=== PATIENT | female | born 1940 | race Caucasian/White ===

== ENCOUNTER 2017-10-18 10:24 | Observation (INO) | payer MEDICARE, OTHER ==
[~2017-10-18] VITALS: Ht 157.5 cm; Wt 49.9 kg
[~2017-10-18 10:24] MED LIST: ACIDOPHILUS1 EAC4 PO; ACIDOPHILUS1 EACH PO; ADVAIR 500-501 EACH INH; ALBUTEROL2.5 MG/3 M INH; ALDACTONE25 MG PO; ALENDRONATE SOD70 MG PO; AMBIEN5 MG PO; AMLODIPINE BESYL5 MG PO; ASPIRIN EC81 MG PO; ATORVASTATIN CA80 MG PO; ATROVENT HFA12.9 GM INH; BAYER MIGRAINE1 EACH PO; BROVANA15 MCG/2 M INH; CARVEDILOL25 MG PO; CEFUROXIME500 MG PO; CEPACOL SORE T1 EAC5 MM; CITRACAL-VIT D1 EAC2 PO; COLACE100 MG PO; COREG3.125 MG PO; DOXYCYCLINE HY100 MG PO; DRISTAN15 ML NAS; DUONEB; DURAGESIC1 EAC4 TD; FERROUS SULFAT325 MG PO; FISH OIL 1,0001 EAC2 NG; FISH OIL 1,0001 EAC2 PO; FISH OIL 1,0001 EAC3 PO; FOSAMAX70 MG PO; FUROSEMIDE20 MG PO; GUAIFENESIN-COD10 ML PO; HYDRALAZINE HCL10 MG PO; HYDROXYZINE HCL25 MG PO; IMDUR30 MG PO; IPRAT-ALBUT 0.5-3 ML INH; IPRATROPIU0.2 MG/1 M INH; IRON18 MG PO; ISOSORBIDE MONO30 MG PO; K-TAB10 MEQ PO; KEFLEX250 MG PO; KEFLEX500 MG PO; KLOR-CON20 MEQ PO; LASIX20 MG PO; LEVOFLOXACIN500 MG PO; LIDODERM700 MG TOP; LIPITOR80 MG GT; LIPITOR80 MG PO; LISINOPRIL10 MG PO; LISINOPRIL20 MG PO; LORATADINE10 MG PO; LORAZEPAM0.5 MG PO; LORAZEPAM1 MG PO; MELOXICAM15 MG PO; NEXAFED30 MG PO; NITROSTAT0.4 MG SL; NORCO 5-325 TA1 EACH PO; NORCO 7.5-3251 EACH PO; OMEPRAZOLE20 MG PO; ONDANSETRON ODT4 MG SL; PAROXETINE HCL40 MG PO; PAXIL40 MG PO; POTASSIUM CHLO10 MEQ PO; PREDNISONE20 MG PO; PROAIR HFA8.5 GM IH; PULMICORT0.5 MG/2 M INH; QUETIAPINE FUM100 MG PO; ROBAFEN-DM SYR118 ML PO; ROBITUSSIN COU118 ML PO; SENIOR PROBIOT1 EACH PO; SEROQUEL100 MG; SEROQUEL50 MG PO; SPIRONOLACTONE25 MG PO; SPIRONOLACTONE50 MG PO; SUPER B COMPLE1 EACH PO; SUPER B COMPLE150 MG PO; TESSALON PERLE100 MG PO; TRAZODONE HCL50 MG PO; VALIUM5 MG PO; VENTOLIN HFA18 GM INH; VITAMIN C500 M1 PO; VITAMIN C500 M4 PO; VITAMIN D31000 UNIT PO; ZITHROMAX250 MG PO; ZOFRAN ODT4 MG SL; ZOLPIDEM TARTRAT5 MG PO; ZONATUSS150 MG PO; ZYRTEC10 MG PO
--- NOTE | 2017-10-18 16:25 | NUR ---
PATIENT ARRIVED TO ROOM 108. PATIENT WAS ABLE TO MOVE SELF FROM GURNEY TO BED. PATIENT WAS WET. DRY ATTENDS PLACED. PATIENT DENIES ANY PAIN, IS LOOKING AT MENU WITH DAUGHTER PRISCILLA. DINNER ORDER PLACED.
--- NOTE | 2017-10-18 16:55 | NUR ---
PT RESTING IN BED 94% ON ROOM AIR. NO DISTRESS NOTED. PT REPORTS SHE HAS A LITTLE PAIN AT HER RIGHT RIBS. PT ADMINISTERED TYLENOL 650MG PRN AT THIS TIME. PT ALERT AND ORIENTED WATCHING TV, DINNER IS ORDERED
[2017-10-18] MEDS ORDERED: BUSPIRONE HCL5 MG PO (17:08)
[2017-10-18] MEDS ORDERED: SPIRONOLACTONE25 MG PO (17:10)
[2017-10-18] MEDS ORDERED: ADVAIR 500-501 EACH INH (17:12)
[2017-10-18] MEDS ORDERED: LORAZEPAM0.5 MG PO (17:13)
[2017-10-18] MEDS ORDERED: ALBUTEROL2.5 MG/3 M INH (17:13)
[2017-10-18] MEDS ORDERED: PROBIOTIC1 EAC1 PO (17:16)
[2017-10-18] MEDS ORDERED: CALTRATE 600 +1 EAC1 PO (17:16)
--- NOTE | 2017-10-18 17:32 | NUR ---
PT ADMITTED THIS AFTERNOON FROM E.D. PT HAS BEEN CALM AND COOPERATIVE SINCE ADMISSION. ONE PERSON HANDS ON ASSIST WITH FFW. BED ALARM ON. SHE REPORTED MILD PAIN AT RIGHT RIBS, TYLENOL ADMINISTERED. V/S STABLE. PT LOOKING FORWARD TO DINNER. NO NAUSEA.
--- NOTE | 2017-10-18 17:34 | NUR ---
MED REC COMPLETE
--- NOTE | 2017-10-18 18:08 | NUR ---
PATIENT RESTING IN BED WATCHING TV. NO NEEDS AT THIS TIME. CALL BUTTON IN REACH.
--- NOTE | 2017-10-18 22:00 | NUR ---
PT LAYING IN BED, NO APPARENT DISTRESS. ALERT AND ORIENTED, PLEASENT DEMEANOR. PT UP TO BSC TO VOID, TOLERATED TRANSER WITH 1 PERSON ASSIST WELL. PT BACK IN BED. GAVE JELLO PER REQUEST. FRESH WATER AT BEDSIDE. CALL LIGHT IN REACH. NO FURTHER NEEDS. TYLENOL GIVEN FOR GENERALIZED BODY ACHES.
--- NOTE | 2017-10-18 22:55 | NUR ---
PATIENT CALLED. 1 PERSON ASSIST TO THE BED SIDE COMMODE AND BACK TO BED. PATIENT ASKED FOR CRACKERS, 2 GRAHAMS GIVEN. CALL LIGHT WITHIN REACH.
--- NOTE | 2017-10-18 23:42 | NUR ---
PT APPEARS TO BE SLEEPING. RR WNL AND UNLABORED. O2 SAT 93% ON RA. LIGHTS AND TV OFF IN ROOM.
--- NOTE | 2017-10-19 05:00 | NUR ---
PT HAD UNEVENTFUL NIGHT. SLEPT WELL ENTIRE SHIFT. ALERT AND ORIENTED X4. SL. 1 PERSON ASSIST TO BSC, TOLERATED WELL. RA. USES CALL LIGHT APPROPRIATLY.
--- NOTE | 2017-10-19 08:08 | NUR ---
PT AWAKE IN BED, ALERT AND ORIENTED. STATES "I'M FEELING A LITTLE BIT BETTER TODAY." OCC HARSH COUGH NOTED DURING ASSESSMENT. PT SATTING 92% ON RA. LUNGS COURSE WITH EXP WHEEZES. PT DENIES PAIN OR OTHER CONCERNS AT THIS TIME. SITTING UP IN BED EATING BREAKFAST INDEPENDENTLY. CALL LIGHT WITHIN REACH.
--- NOTE | 2017-10-19 09:39 | NUR ---
PT AMB HALLWAY WITH P.T., SHAREE WELL WITH FWW AND SBA. HARSH, HACKING COUGH NOTED BUT PT DENIES SOB. SATTING 96% ON RA. PT USED RESTROOM TO VOID, CURRENTLY RESTING IN BED. CALL LIGHT WITHIN REACH.
--- NOTE | 2017-10-19 10:00 | NUR ---
RN IN ROOM WITH PATIENT FOR VITALS AND I&O'S.
--- NOTE | 2017-10-19 10:07 | NUR ---
IT IS AGREED UPON BY DR. ERVIN, MYSELF, AND BHAKTI PALACIOS, TO HAVE PATIENT'S GOAL FOR THE TUBE FEEDING BE JEVITY 1.5 FORMULA RUN CONTINUOUSLY AT A RATE OF 45 ML/HR. THIS WILL PROVIDE 1620 CALORIES (42.5 JOI/KG), 68 GM PROTEIN (1.78 GM/KG) and 820 ml WATER. RECOMMENDED WATER FLUSH TO MEET PATIENT'S FLUID NEEDS IS 100 ML QID WITH MEDS.
--- NOTE | 2017-10-19 10:09 | NUR ---
PT GIVEN PRN NEB TREATMENT PER REQUEST. SATTING 93% ON RA.
--- NOTE | 2017-10-19 10:15 | NUR ---
NOTIFIED DR. ERVIN OF PT COUGH AND ABNORMAL LABS. NO NEW ORDERS AT THIS TIME.
[2017-10-19] MEDS ORDERED: ZITHROMAX250 MG PO (10:39)
--- NOTE | 2017-10-19 12:05 | NUR ---
PT MINIMAL ASSIST TO GET DRESSED. PT AND DAUGHTER GIVEN VERBAL AND WRITTEN DC INSTRUCTIONS. IV DC'D, SITE WITHOUT REDNESS OR INFLAMMATION. PT SITTING AT BEDSIDE EATING LUNCH BEFORE LEAVING. ALL QUESTIONS ANSWERED.
--- NOTE | 2017-10-19 12:45 | NUR ---
PT LAYING IN BED, COUGHING BUT ALERT. SHE TOLD ME THAT SHE DID NOT FEEL WELL, AND THAT SHE WAS GOING TO BE DC'D TODAY. WE VISITED A MOMENT, AND I ENCOURAGED HER TO LET THE MEDS WORK FOR HER. SHE WOULD NOT BE DC'D IF THERE WAS A SOLID REASON FOR KEEPING HER. SHE WAS COMPLAINING OF HOW THE COUGHING MADE HER ABDOMEN HURT. I SPOKE WITH DR ERVIN, AND SHARED WITH PT THAT SHE FELT THE MEDS WOULD WORK-JUST BE SURE TO TAKE THEM AND GIVE YOUR BODY TIME TO HEAL. SHE SEEMED TO ACCEPT THIS A LITTLE BETTER. EXTENDED A BLESSING
--- NOTE | 2017-10-21 22:39 | EKG ---
[facility] [address] [facility] [place] [address] Signed Normal sinus rhythm Left ventricular hypertrophy with QRS widening and repolarization abnormality Abnormal ECG No previous ECGs available Confirmed by PREETI SPENCER MD ([id number]) on 10/21/2017 10:38:49 PM Electronically Signed By: PREETI SPENCER MD 10/21/17 2239 PATIENT NAME: ISI PRADO Electrocardiogram DATE OF : 36 PHYSICIAN: PREETI SPENCER MD REPORT #: [id number] REPORT IS CONFIDENTIAL AND NOT TO BE RELEASED WITHOUT AUTHORIZATION
== END 2017-10-19 12:20 | disposition home or self-care (01) ==
LOC: ED 10:24 → MS 10:25
PROVIDERS: ADMIT Internal Medicine
DX: R05 Cough (principal); J44.9 Chronic obstructive pulmonary disease, unspecified; F41.8 Other specified anxiety disorders; E78.00 Pure hypercholesterolemia, unspecified; I13.0 Hypertensive heart and 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 disease with heart failure and stage 1 through stage 4 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 disease, or unspecified 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 disease; N18.9 Chronic kidney disease, unspecified; I50.9 Heart failure, unspecified; M54.30 Sciatica, unspecified side; I25.10 Atherosclerotic heart disease of native coronary artery without angina pectoris; M81.0 Age-related osteoporosis without current pathological fracture; Z86.73 Personal history of transient ischemic attack (TIA), and cerebral infarction without residual deficits; Z79.82 Long term (current) use of aspirin; Z79.83 Long term (current) use of bisphosphonates; Z79.52 Long term (current) use of systemic steroids; Z79.899 Other long term (current) drug therapy
CPT/HCPCS: 36415; 71045; 80048; 80053; 83605; 83735; 83880; 84484; 85025; 85651; 93005; 93010; 94640; 94762; 96361; 96365; 96375; 97161; 99285; G0378; G8978; G8979; G8980; J0456; J1200; J2060; J2930; J7120

== ENCOUNTER 2018-01-31 16:01 | Emergency (ER) | payer MEDICARE, OTHER ==
[~2018-01-31] VITALS: Ht 157.5 cm; Wt 48.5 kg
[~2018-01-31 16:01] MED LIST changes: +BUSPIRONE HCL5 MG PO; +CALTRATE 600 +1 EAC1 PO; +PROBIOTIC1 EAC1 PO
--- OUTSIDE RECORDS SUMMARY | 2018-01-31 16:25 | XMS | Clinical Summary ---
Demographics + + + | Address | [address] | | | [place] [address] | + + + | Home Phone | | + + + | Preferred Language | Unknown | + + + | Marital Status | Single | + + + | Religion Affiliation | 1041 | + + + | Race | Unknown | + + + | Ethnic Group | Unknown | + + + Author + + + | Author | [employer] | + + + | Organization | [facility] | + + + | Address | Unknown | + + + | Phone | Unavailable | + + + Support + + +---------+ + | Name | Relationship | Address | Phone | + + +---------+ + | Zunilda Tellez | ECON | Unknown | | + + +---------+ + | Sondra Tellez | ECON | Unknown | | + + +---------+ + Care Team Providers + +------+ + | Care Mine Motor Engineer Name | Role | Phone | + +------+ + | Silvana Shoemaker PIANO TECHNICIAN | PP | | + +------+ + Allergies No Known Allergies Current Medications + + +-------+---------+------+------+-------+ | Prescription | Sig. | Disp. | Refills | Star | End | Statu | | | | | | t | Date | s | | | | | | Date | | | + + +-------+---------+------+------+-------+ | quetiapine | Take 50 mg by mouth | | | | | Activ | | (SEROQUEL) 50 MG | nightly. | | | | | e | | tablet | | | | | | | + + +-------+---------+------+------+-------+ | PARoxetine (PAXIL) | Take 40 mg by mouth | | | | | Activ | | 40 MG tablet | every morning. | | | | | e | + + +-------+---------+------+------+-------+ | alendronate | Take 70 mg by mouth | | | | | Activ | | (FOSAMAX) 70 MG | every 7 days. Take | | | | | e | | tablet | in the morning with | | | | | | | | a full glass of | | | | | | | | water, on an empty | | | | | | | | stomach, and do not | | | | | | | | take anything else | | | | | | | | by mouth or lie down | | | | | | | | for the next 30 | | | | | | | | min. | | | | | | + + +-------+---------+------+------+-------+ | aspirin 81 MG EC | Take 81 mg by mouth | | | | | Activ | | tablet | daily with | | | | | e | | | breakfast. | | | | | | + + +-------+---------+------+------+-------+ | Cholecalciferol | Take 1,000 Units by | | | | | Activ | | (VITAMIN D3) [address] | mouth daily. | | | | | e | | UNITS capsule | | | | | | | + + +-------+---------+------+------+-------+ | carvedilol (COREG) | Take 25 mg by mouth | | | | | Activ | | 25 MG tablet | 2 (two) times daily | | | | | e | | | with meals. | | | | | | + + +-------+---------+------+------+-------+ | isosorbide | Take 30 mg by mouth | | | | | Activ | | mononitrate (IMDUR) | daily. | | | | | e | | 30 MG 24 hr tablet | | | | | | | + + +-------+---------+------+------+-------+ | | Inhale 1 puff into | | | | | Activ | | fluticasone-salmeter | the lungs 2 (two) | | | | | e | | ol (ADVAIR) 500-50 | times daily. | | | | | | | MCG/DOSE diskus | | | | | | | | inhaler | | | | | | | + + +-------+---------+------+------+-------+ | amLODIPine | Take 5 mg by mouth | | | | | Activ | | (NORVASC) 5 MG | daily. | | | | | e | | tablet | | | | | | | + + +-------+---------+------+------+-------+ | | Take 1 tablet by | | | | | Activ | | HYDROcodone-acetamin | mouth every 6 (six) | | | | | e | | ophen (NORCO) 5-325 | hours as needed for | | | | | | | MG per tablet | Pain. | | | | | | + + +-------+---------+------+------+-------+ | atorvastatin | Take 80 mg by mouth | | | 04/17 | | Activ | | (LIPITOR) 80 MG | daily. | | | 07/06 | | e | | tablet | | | | 15 | | | + + +-------+---------+------+------+-------+ | spironolactone | Take 25 mg by mouth | | | 07/ | | Activ | | (ALDACTONE) 25 MG | daily. | | | 03/05 | | e | | tablet | | | | 15 | | | + + +-------+---------+------+------+-------+ | arformoterol | Take 15 mcg by | | | | | Activ | | (BROVANA) 15 MCG/2ML | nebulization 2 (two) | | | | | e | | NEBU | times daily. | | | | | | + + +-------+---------+------+------+-------+ | budesonide | Take 0.5 mg by | | | | | Activ | | (PULMICORT) 0.5 | nebulization 2 (two) | | | | | e | | MG/2ML nebulizer | times daily. | | | | | | | suspension | | | | | | | + + +-------+---------+------+------+-------+ | Lactobacillus | Take by mouth. | | | | | Activ | | (ACIDOPHILUS PO) | | | | | | e | + + +-------+---------+------+------+-------+ | loratadine | Take 10 mg by mouth | | | | | Activ | | (CLARITIN) 10 MG | daily. | | | | | e | | tablet | | | | | | | + + +-------+---------+------+------+-------+ | oxymetazoline | 1 spray by Each Nare | | | | | Activ | | (AFRIN) 0.05 % nasal | route 2 (two) times | | | | | e | | | daily. | | | | | | + + +-------+---------+------+------+-------+ | ascorbic acid | Take 500 mg by mouth | | | | | Activ | | (VITAMIN C) 500 MG | daily. | | | | | e | | tablet | | | | | | | + + +-------+---------+------+------+-------+ | traZODone | Take 50 mg by mouth | | | | 04/1 | Disco | | (DESYREL) 50 MG | nightly. | | | | 1/20 | ntinu | | tablet | | | | | 18 | ed | + + +-------+---------+------+------+-------+ | diazepam (VALIUM) | Take 5 mg by mouth | | | | 04/1 | Disco | | 5 MG tablet | every 6 (six) hours | | | | 1/20 | ntinu | | | as needed for | | | | 18 | ed | | | Anxiety. | | | | | | + + +-------+---------+------+------+-------+ Active Problems + + + | Problem | Noted Date | + + + | LBBB (left bundle branch block) | 01/25/2018 | + + + | Closed nondisplaced lateral mass fracture of first cervical | 07/22/2015 | | vertebra (HCC) | | + + + | Right renal mass | 11/18/2014 | + + + | CKD (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 disease), stage III | 08/19/2014 | + + + | Proteinuria | 08/19/2014 | + + + | Stroke | 08/19/2014 | + + + + + | Overview: In 1993. | + + + + + | COPD (chronic obstructive pulmonary disease) | 08/19/2014 | + + + | Osteoarthritis | 08/19/2014 | + + + | Vitamin D deficiency | 08/19/2014 | + + + | HTN (hypertension) | 07/29/2014 | + + + | Anemia | 07/29/2014 | + + + Resolved Problems + + + + | Problem | Noted | Resolved | | | Date | Date | + + + + | Heart murmur | 08/19/20 | | | | 14 | 8 | + + + + Encounters +--------+ + + + + | Date | Type | Specialty | Care Team | Description | +--------+ + + + + | 01/26/ | Documentati | | Laila Kate | Labs Only | | 2018 | on Only | | Bertin, JAMIE | | +--------+ + + + + | 01/25/ | Initial | | Lawanda Latham, | Essential | | 2018 | consult | | MD | hypertension | | | | | | (Primary Dx); CKD | | | | | | (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 | | | | | | disease), stage III; | | | | | | LBBB (left bundle | | | | | | branch block); | | | | | | Chronic obstructive | | | | | | pulmonary disease, | | | | | | unspecified COPD | | | | | | type (HCC) | +--------+ + + + + | 01/23/ | Documentati | | Anyi | Labs Only | | 2017 | on Only | | BHAKTI Mancia | | +--------+ + + + + | 12/15/ | Documentati | | Jillian Houston CMA | Labs Only ([facility] | | 2017 | on Only | | | Lab dated | | | | | | 12/14/2017) | +--------+ + + + + | 12/15/ | Orders Only | | Jillian Houston CMA | CKD (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 | | 2017 | | | | disease), stage III; | | | | | | Essential | | | | | | hypertension; | | | | | | Proteinuria, | | | | | | unspecified type | +--------+ + + + + | 12/09/ | Office | | Will Rowan, | CKD (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 | | 2018 | 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 | | 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 PROFESSOR | disease), stage III | | | | | | (Primary Dx); | | | | | | Essential | | | | | | hypertension; | | | | | | Proteinuria, | | | | | | unspecified type | +--------+ + + + + | 12/08/ | Orders Only | | Brian, | Anemia, unspecified | | 2017 | | | JAMIE Guzman | type; CKD (chronic | | | | | | kidney disease), | | | | | | stage III; Essential | | | | | | hypertension; | | | | | | Proteinuria; Right | | | | | | renal mass; Vitamin | | | | | | D deficiency | +--------+ + + + + | 12/07/ | Documentati | | Brian, | Labs Only ([facility] | | 2017 | on Only | | JAMIE Guzman | - 12/06/17 - | | | | | | rita) | +--------+ + + + + | 12/07/ | Orders Only | | Essieliger, | Anemia, unspecified | | 2017 | | | 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; CKD (chronic | | | | | | kidney disease), | | | | | | stage III; Essential | | | | | | hypertension; | | | | | | Proteinuria; Right | | | | | | renal mass; Vitamin | | | | | | D deficiency | +--------+ + + + + | 11/09/ | Documentati | | Lawanda Latham, | | | 2017 | on Only | | MD | | +--------+ + + + + from Last 3 Months Family History + + +------+ + | Medical History | Relation | Name | Comments | + + +------+ + | Alzheimer's disease | Brother | | | + + +------+ + | Heart attack | Brother | | | + + +------+ + | Parkinson's disease | Brother | | | + + +------+ + | Seizures | Daughter | | | + + +------+ + | Stroke | Daughter | | | + + +------+ + | Cancer | Father | | Pancreatic Cancer | + + +------+ + | Heart attack | Father | | | + + +------+ + | Pancreatic cancer | Father | | | + + +------+ + | Cancer | Mother | | Colon Cancer | + + +------+ + | Colon cancer | Mother | | | + + +------+ + | Hypertension | Mother | | | + + +------+ + | Heart disease | Other | | | + + +------+ + | Depression | Sister | | | + + +------+ + | Diabetes | Sister | | | + + +------+ + | Heart attack | Sister | | | + + +------+ + | Stroke | Sister | | | + + +------+ + | Kidney disease | Sister | | | + + +------+ + | Alcoholism | Son | | | + + +------+ + | Alcoholism | Son | | | + + +------+ + + +------+ + + | Relation | Name | Status | Comments | + +------+ + + | Brother | | | | + +------+ + + | Daughter | | | | + +------+ + + | Father | | | | + +------+ + + | Mother | | | | + +------+ + + | Other | | | | + +------+ + + | Sister | | | | + +------+ + + | Sister | | | | + +------+ + + | Son | | | | + +------+ + + | Son | | | | + +------+ + + Social History + +-------+ +--------+------+ | Tobacco Use | Types | Packs/Day | Years | Date | | | | | Used | | + +-------+ +--------+------+ | Never Smoker | | | | | + +-------+ +--------+------+ + +---+---+---+ | Smokeless Tobacco: | | | | | Never Used | | | | + +---+---+---+ + + +---------+ + | Alcohol Use | Drinks/We | oz/Week | Comments | | | ek | | | + + +---------+ + | No | | | | + + +---------+ + + + + | Sex Assigned at | Date Recorded | | | | + + + | Not on file | | + + + Last Filed Vital Signs + + + + | Vital Sign | Reading | Time Taken | + + + + | Blood Pressure | 124/62 | 01/25/2018 2:32 PM PDT | + + + + | Pulse | 66 | 01/25/2018 2:32 PM PDT | + + + + | Temperature | 36.4 C (97.6 F) | 12/09/2017 1:08 PM PST | + + + + | Respiratory Rate | - | - | + + + + | Oxygen Saturation | 95% | 01/25/2018 2:32 PM PDT | + + + + | Inhaled Oxygen | - | - | | Concentration | | | + + + + | Weight | 48.6 kg (107 lb 1.6 | 01/25/2018 2:32 PM PDT | | | oz) | | + + + + | Height | 157.5 cm (5' 2") | 01/25/2018 2:32 PM PDT | + + + + | Body Mass Index | 19.59 | 01/25/2018 2:32 PM PDT | + + + + Plan of Treatment + + + + + | Health Maintenance | Due Date | Last Done | Comments | + + + + + | Vaccine: | | | | | Dtap/Tdap/Td (1 - | 7 | | | | Tdap) | | | | + + + + + | Vaccine: Zoster (#1) | | | | | | 8 | | | + + + + + | DEXA SCAN SCREENING | | | | | | 3 | | | + + + + + | Vaccine: | | | | | Pneumococcal 65+ | 3 | | | | Low/Medium Risk (1 | | | | | of 2 - PCV13) | | | | + + + + + | Vaccine: Influenza | | | | | (Season Ended) | 8 | | | + + + + + Results Basic metabolic panel (12/14/2017 1:00 PM) + + + + | Component | Value | Ref Range | + + + + | GLUCOSE | 124 (A) | 70 - 100 mg/dL | + + + + | BUN | 21 | 6 - 23 mg/dL | + + + + | CREATININE | 1.38 (A) | 0.7 - 1.18 mg/dL | + + + + | BUN/CREAT | 15.2 | 6.0 - 28.6 | + + + + | CALCIUM | 9.1 | 8.4 - 10.2 mg/dL | + + + + | SODIUM | 140 | 132 - 143 mmol/L | + + + + | POTASSIUM | 4.7 | 3.6 - 5.1 mmol/L | + + + + | CHLORIDE | 106 | 95 - 112 mmol/L | + + + + | CO2 | 21 | 19 - 31 mmol/L | + + + + | ANION GAP AGAP | 17.7 | 7 - 21 mmol/L | + + + + | EGFR | 37 (A) | 60 mg/dL | + + + + + + + | Specimen | Performing Laboratory | + + + | Blood | [facility] [address] [place] [address] [place] | | | [address] | + + + Urinalysis (reflex to microscopic/reflex to culture) (12/07/2017) + + + + | Component | Value | Ref Range | + + + + | COLOR UA | Light Yellow | | + + + + | CLARITY | Clear | | + + + + | SPECIFIC | 1.008 | 1.005 - 1.030 | | GRAVITY,URINE | | | + + + + | LEUKOCYTE ESTERASE | Comment: 100 | | + + + + | NITRITE | Negative | | + + + + | UROBILINOGEN | Normal | | + + + + | PROTEIN | neg | | + + + + | BLOOD | Negative | | + + + + | KETONES | neg | | + + + + | BILIRUBIN | Negative | | + + + + | GLUCOSE | Negative | | + + + + + + + | Specimen | Performing Laboratory | + + + | | [place] | | | [phone] | + + + + + | Narrative | + + | CASTS - NEGATIVE WBC'S - 5-0-4 RBC'S - 0-0-4 EPITHELIAL - SQUAMOUS 1+ CRYSTALS - | | NEGATIVE BACTERIA - 1+ | + + Protein / creatinine ratio, urine (12/07/2017) + +-------+ + | Component | Value | Ref Range | + +-------+ + | UR | 125.0 | 0 - 150 | | PROTEIN/CREATININE | | | + +-------+ + + + + | Specimen | Performing Laboratory | + + + | Urine | [facility] | | | [address] | + + + + + | Narrative | + + | PROTEIN, URINE - 7 - 0.0 - 50.0 CREATININE, URINE - 56 | + + CBC W/Auto Diff (Reflex to Manual) (12/06/2017) + + + + | Component | Value | Ref Range | + + + + | WBC | 9.6 | 4.5 - 11.0 10^3/mL | + + + + | RBC | 3.94 | 3.8 - 5.1 10^6/ L | + + + + | HGB | 12.6 | 12.0 - 16.0 g/dL | + + + + | HCT | 38.1 | 35 - 45 % | + + + + | MCV | 96.7 | 81 - 99 fL | + + + + | MCH | 32 | 27 - 33 pg | + + + + | MCHC | 33 | 30 - 36 g/dL | + + + + | PLT | 251 | 140 - 440 K/ L | + + + + | RDW SD | 13.8 | 10.5 - 15.0 % | + + + + | MPV | | fL | + + + + | DIFF TYPE | | | + + + + | NEUTROPHILS | 72.0 | 39 - 80 % | + + + + | LYMPHOCYTES | 16.2 (A) | 24 - 44 % | + + + + | MONOCYTES | 9.7 | 0 - 12 % | + + + + | EOSINOPHILS | 1.1 | 0 - 6 % | + + + + | BASOPHILS | 1.0 | 0 - 2 % | + + + + | NEUTROPHILS ABS | | / L | + + + + | LYMPHOCYTES ABS | | / L | + + + + | MONOCYTES ABS | | / L | + + + + | EOSINOPHILS ABS | | / L | + + + + | BASOPHILS ABS | | / L | + + + + + + + | Specimen | Performing Laboratory | + + + | Blood | [facility] [address] [place] [address] | | | [address] | + + + Uric acid (12/06/2017) + +---------+ + | Component | Value | Ref Range | + +---------+ + | URIC ACID | 7.5 (A) | 2.3 - 6.6 | + +---------+ + + + + | Specimen | Performing Laboratory | + + + | Blood | [facility] [address], [facility] [address] [place], [place] | | | [address] | + + + PTH intact no calcium (12/06/2017) + + + + | Component | Value | Ref Range | + + + + | PTH INTACT NO | 173.5 (A) | 15 - 65 pg/mL | | CALCIUM | | | + + + + + + + | Specimen | Performing Laboratory | + + + | Blood | [facility] [address], [address] [place], [place] | | | [address] | + + + Magnesium (12/06/2017) + +-------+ + | Component | Value | Ref Range | + +-------+ + | MAGNESIUM | 2.0 | 1.7 - 2.5 mg/dL | + +-------+ + + + + | Specimen | Performing Laboratory | + + + | Blood | [facility] [address] [facility] [address] [place] | | | [address] | + + + Renal function panel (12/06/2017) + + + + | Component | Value | Ref Range | + + + + | GLUCOSE | 105 (A) | 70 - 100 mg/dL | + + + + | BUN | 27 (A) | 6 - 23 mg/dL | + + + + | CREATININE | 1.47 (A) | 0.70 - 1.18 mg/dL | + + + + | PHOSPHORUS | | mg/dL | + + + + | Albumin | 3.9 | 3.5 - 5.0 | + + + + | SODIUM | 143 | 132 - 143 mmol/L | + + + + | POTASSIUM | 5.2 (A) | 3.6 - 5.1 mmol/L | + + + + | CHLORIDE | 106 | 95 - 112 mmol/L | + + + + | CO2 | 19 | 19 - 31 mmol/L | + + + + | ANION GAP AGAP | 23.2 (A) | 7 - 21 mmol/L | + + + + | GFR MDRD Non Af Amer | | | + + + + | Phosphorus,Inorganic | 3.8 | 2.5 - 5.0 | + + + + | BUN/CREAT | 18.4 | 6.0 - 28.6 | + + + + | CALCIUM | 9.1 | 8.4 - 10.2 mg/dL | + + + + | EGFR | 34 | mg/dL | + + + + + + + | Specimen | Performing Laboratory | + + + | Blood | [facility] [address] [place] [address] | | | [address] | + + + from Last 3 Months Insurance + +--------+ +------+-------+ + | Payer | Benefi | Subscriber | Type | Phone | Address | | | t Plan | ID | | | | | | / | | | | | | | Group | | | | | + +--------+ +------+-------+ + | MEDICARE | MEDICA | xxxxxxxxxx | | | [address] | | | RE | | | | [place] [address] | | | IP-OP | | | | | + +--------+ +------+-------+ + | MEDICAID | MEDICA | xxxxxxxx | | | [address] | | | ID | | | | [place] | | | [place] | | | | [phone] | + +--------+ +------+-------+ + + +--------+ +--------+ + + | Guarantor Name | Accoun | Relation to | Date | Phone | Billing Address | | | t Type | Patient | of | | | | | | | | | | + +--------+ +--------+ + + | ISI PRADO | Person | Self [birth year] Home: | [address] | | | [address] | | 1940 | [phone] | [address] | | | [address] | | | [phone] | [place] | | | | | | | [phone] | + +--------+ +--------+ + +
--- OUTSIDE RECORDS SUMMARY | 2018-01-31 16:26 | XMS | Encounter Summary ---
Demographics + + + | Address | [address] | | | [place] [address] | + + + | Home Phone | | + + + | Preferred Language | Unknown | + + + | Marital Status | Single | + + + | Sabianism Affiliation | 1041 | + + + | Race | Unknown | + + + | Ethnic Group | Unknown | + + + Author + + + | Author | [email or web address] | + + + | Organization | [facility] [employer] [facility] | + + + | Address [...] Team Providers + +------+ + | Care Online Marketing Analyst Name | Role | Phone | + +------+ + | Silvana Shoemaker NP | PCP | | + +------+ + Reason for Visit + + + | Reason | Comments | + + + | Labs Only | [facility] dated 12/14/2017 | + + + Encounter Details +--------+ + + + + | Date | Type | Department | Care Team | Description | +--------+ + + + + | 12/15/ | Documentati | [facility] | Jillian Houston CMA | Labs Only ([facility] | | 2018 | on Only | [place] [address] | | Lab dated | | | | [address] | | 12/14/2017) | | | | [place] [address] | | | | | | [phone] | | | +--------+ + + + + Social History + +-------+ +--------+------+ | Tobacco Use | Types | Packs/Day | Years | Date | | | | | Used | | + +-------+ +--------+------+ | Never Smoker | | | | | + +-------+ +--------+------+ + + +---------+ + | Alcohol Use | Drinks/We | oz/Week | Comments | | | ek | | | + + +---------+ + | No | | | | + + +---------+ + + + + | Sex Assigned at | Date Recorded | | | | + + + | Not on file | | + + + as of this encounter Plan of Treatment Not on fileas of this encounter Visit Diagnoses Not on filein this encounter"
--- OUTSIDE RECORDS SUMMARY | 2018-01-31 16:26 | XMS | Encounter Summary ---
Demographics + + + | Address | [address] | | | [place] [address] | + + + | Home Phone | | + + + | Preferred Language | Unknown | + + + | Marital Status | Single | + + + | Jainism Affiliation | 1041 | + + + | Race | Unknown | + + + | Ethnic Group | Unknown | + + + Author + + + | Author | [facility] | + + + | Organization | [facility] | + + + | Address [...] Team Providers + +------+ + | Care Data Collection Associate Name | Role | Phone | + +------+ + | Silvana Shoemaker CORE PASTER | PCP | | + +------+ + Encounter Details +--------+ + + + + | Date | Type | Department | Care Team | Description | +--------+ + + + + | 12/15/ | Orders Only | [facility] | Jillian Houston CMA | CKD (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 | | 2018 | | [place] [address] | | disease), stage III; | | | | [address] | | Essential | | | | [place] [address] | | hypertension; | | | | [phone] | | Proteinuria, | | | | | | unspecified type | +--------+ + + + + Social [...] Treatment Not on fileas of this encounter Results Basic metabolic panel (12/14/2017 1:00 PM) [...] + | Blood | [facility] [address] [facility] [address] [place] | | | [address] | + + + in this encounter Visit Diagnoses + + | Diagnosis | + + | CKD (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 disease), stage III | + + | Essential hypertension | + + | Unspecified essential hypertension | + + | Proteinuria, unspecified type | + +"
--- OUTSIDE RECORDS SUMMARY | 2018-01-31 16:26 | XMS | Encounter Summary ---
Demographics + + + | Address | [address] | | | [place] [address] | + + + | Home Phone | | + + + | Preferred Language | Unknown | + + + | Marital Status | Single | + + + | Yazidism Affiliation | 1041 | + + + | Race | Unknown | + + + | Ethnic Group | Unknown | + + + Author + + + | Author | [facility] [facility] [employer] | + + + | Organization | [facility] [facility] | + + + | Address [...] Team Providers + +------+ + | Care Food Sanitarian Name | Role | Phone | + +------+ + | Silvana Shoemaker NP | PCP | | + +------+ + Reason for Visit + + + | Reason | Comments | + + + | Labs Only | | + + + Encounter Details +--------+ + + + + | Date | Type | Department | Care Team | Description | +--------+ + + + + | 04// | Documentati | [facility] [place] | Joaor, | Labs Only | | 2018 | on Only | Cardiology [place] | BHAKTI [place]ancia | | | | | [address] [place] | | | | | | [place] | | | | | | [address] | | | | | | [phone] | | | +--------+ + + + [...]
--- OUTSIDE RECORDS SUMMARY | 2018-01-31 16:26 | XMS | Encounter Summary ---
Demographics + + + | Address | [address] | | | [place] [address] | + + + | Home Phone | | + + + | Preferred Language | Unknown | + + + | Marital Status | Single | + + + | Adventism Affiliation | 1041 | + + + | Race | Unknown | + + + | Ethnic Group | Unknown | + + + Author + + + | Author | [employer] | + + + | Organization | [facility] | + + + | Address [...] Team Providers + +------+ + | Care Fabrication Supervisor Name | Role | Phone | + [...] + + | 01/26/ | Documentati | [facility] | Laila Kate | Labs Only | | 2018 | on Only | Cardiology [place] CMA | | | | | [address] [place] | | | | | | [place] | | | | | | [address] | | | | | | [phone] | | | +--------+ + + + [...]
--- OUTSIDE RECORDS SUMMARY | 2018-01-31 16:26 | XMS | Encounter Summary ---
Demographics + + + | Address | [address] | | | [place] [address] | + + + | Home Phone | | + + + | Preferred Language | Unknown | + + + | Marital Status | Single | + + + | Yarsani Affiliation | 1041 | + + + | Race | Unknown | + + + | Ethnic Group | Unknown | + + + Author + + + | Author | [employer] | + + + | Organization | [facility] [employer] [facility] | + + + | Address [...] Team Providers + +------+ + | Care Under Trimmer Name | Role | Phone | + +------+ + | Silvana hSoemaker COW PUNCHER | PCP | | + +------+ + Encounter Details +--------+ + + + + | Date | Type | Department | Care Team | Description | +--------+ + + + + | 12/08/ | Orders Only | [facility] | Brian, | Anemia, unspecified | | 2017 | | [address] | [place] | type; CKD (chronic | | | | [address] | | kidney disease), | | | | [place] [address] | | stage III; Essential | | | | [phone] | | hypertension; | | | | | | Proteinuria; Right | | | | | | renal mass; Vitamin | | | | | | D deficiency | +--------+ + + + + Social [...] Not on fileas of this encounter Results Urinalysis (reflex to microscopic/reflex to culture) (12/07/2017) [...] Laboratory | + + + | | [facility] [place] [address] [place] | | | [address] | + + + + + | [...] | + + + | Urine | [address] | | | [address] | + + + + + | Narrative | + + | PROTEIN, URINE - 7 - 0.0 - 50.0 CREATININE, URINE - 56 | + + in this encounter Visit Diagnoses + + | Diagnosis | + + | Anemia, unspecified type | + + | CKD (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 disease), stage III | + + | Chronic kidney disease, Stage III (moderate) | + + | Essential hypertension | + + | Unspecified essential hypertension | + + | Proteinuria | + + | Right renal mass | + + | Unspecified disorder of kidney and ureter | + + | Vitamin D deficiency | + + | Unspecified vitamin D deficiency | + +"
--- OUTSIDE RECORDS SUMMARY | 2018-01-31 16:26 | XMS | Encounter Summary ---
Demographics + + + | Address | [address] | | | [place] [address] | + + + | Home Phone | | + + + | Preferred Language | Unknown | + + + | Marital Status | Single | + + + | Congregational Affiliation | 1041 | + + + | Race | Unknown | + + + | Ethnic Group | Unknown | + + + Author + + + | Author | [employer] | + + + | Organization | [facility] [employer] [facility] | + + + | Address [...] Team Providers + +------+ + | Care Tenter Feeder Name | Role | Phone | + +------+ + | Silvana Shoemaker NP | PCP | | + +------+ + Reason for Visit + + + | Reason | Comments | + + + | Establish Care | | + + + Consult and Treat (Routine) +--------+--------+ + + + + | Status | Reason | Specialty | Diagnoses / | Referred By | Referred To | | | | | Procedures | Contact | Contact | +--------+--------+ + + + + | Closed | | Cardiology | Diagnoses | Navid, | Noa, | | | | | Left | JADEN Pina | MD Lawanda | | | | | bundle-branc | [address] | [address] | | | | | h block, | [place], | Dr [address] | | | | | unspecified | [place] [address] | [place], [place] | | | | | | Phone: | [phone] Phone: | | | | | [employer] | [phone] | [phone] | | | | | tic heart | Fax: | Fax: | | | | | disease of | [phone] | [phone] | | | | | rincon | | | | | | | coronary | | | | | | | artery with | | | | | | | other forms | | | | | | | 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 | | | | | | | (HCC) | | | | | | | Procedures | | | | | | | Consult | | | +--------+--------+ + + + + Encounter Details +--------+ + + + + | Date | Type | Department | Care Team | Description | +--------+ + + + + | 01/25/ | Initial | [facility] [place] | Noa [place], | Essential | | 2018 | consult | Cardiology [place] | [address] | hypertension | | | | [address] | [address] Zambrano, | (Primary Dx); CKD | | | | [address] | [place] [address] | (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 | | | | [place] [address] | [phone] | disease), stage III; | | | | [phone] | | LBBB (left bundle | | | | | | branch block); | | | | | | Chronic obstructive | | | | | | pulmonary disease, | | | | | | unspecified COPD | | | | | | type (HCC) | +--------+ + + + + Social [...] + + + as of this encounter Last Filed Vital Signs + + + + | Vital Sign | Reading | Time Taken | + + + + | Blood Pressure | 124/62 | 01/25/2018 2:32 PM PDT | + + + + | Pulse | 66 | 01/25/2018 2:32 PM PDT | + + + + | Temperature | - | - | + + + + | Respiratory [...] PM PDT | + + + + in this encounter Progress Notes Lawanda Lambert MD - 01/25/2018 2:30 PM PDTFormatting of this note may be different fro m the original. [facility]: Cardiology Initial Consult Note Name of Engine Repairer: Lawanda Lambert MD Reason for Consultation: Left bundle branch block Requesting Physician: Family Randell Shoemaker History Obtained From: patient CHIEF COMPLAINT: Abnormal ECG HISTORY OF PRESENT ILLNESS: Patient is 77 y.o. presented for evaluation of Left bundle branch block. Patient lives alone, has limited activity level, denies any chest pain or shortness of alysha th. No LE edema, no orthopnea. Weight has been stable. Follows up with nephrology for chronic k idney disease. Recently has joined pulmonary rehabilitation and has been feeling better since. Used to live in [place] and moved to [facility] around 5 years ago. REVIEW OF SYSTEMS Constitutional: Positive for mild fatigue. HENT: Negative for nosebleeds, no runny nose or sneezing. Eyes: Negative for visual disturbance, no double vision, tearing or itching. Respiratory: Positive for shortness of breath. Cardiovascular: As HPI. Gastrointestinal: Negative for nausea, vomiting, abdominal pain and blood in stool. Genitourinary: Negative for hematuria, no dysuria. Musculoskeletal: Arthritic and back pain. Skin: Negative for color change, no rash. Neurological: Negative for dizziness, syncope and numbness. Hematological: Does not bruise/bleed easily. Psychiatric/Behavioral: The patient is not nervous/anxious. PAST MEDICAL & SURGICAL HISTORY Past Medical History Diagnosis Date Anemia Arthritis Asthma COPD (chronic obstructive pulmonary disease) (HCC) Depression Heart disease HTN (hypertension) Hyperlipidemia Irregular heart beat Seizures (HCC) Stroke (HCC) Past Surgical History Procedure Laterality Date APPENDECTOMY 1973 CHOLECYSTECTOMY 1973 COCCYX REMOVAL HYSTERECTOMY 1964 RESECTION RIB PARTIAL TONSILLECTOMY 1942 MEDICATIONS Home Medications Current Outpatient Prescriptions: alendronate (FOSAMAX) 70 MG tablet, Take 70 mg by mouth every 7 days. Take in the morn ing with a full glass of water, on an empty stomach, and do not take anything else by mouth or lie down for the next 30 min., Disp: , Rfl: amLODIPine (NORVASC) 5 MG tablet, Take 5 mg by mouth daily., Disp: , Rfl: arformoterol (BROVANA) 15 MCG/2ML NEBU, Take 15 mcg by nebulization 2 (two) times arnulfo y., Disp: , Rfl: ascorbic acid (VITAMIN C) 500 MG tablet, Take 500 mg by mouth daily., Disp: , Rfl: aspirin 81 MG EC tablet, Take 81 mg by mouth daily with breakfast., Disp: , Rfl: atorvastatin (LIPITOR) 80 MG tablet, Take 80 mg by mouth daily., Disp: , Rfl: budesonide (PULMICORT) 0.5 MG/2ML nebulizer suspension, Take 0.5 mg by nebulization 2 (two) times daily., Disp: , Rfl: carvedilol (COREG) 25 MG tablet, Take 25 mg by mouth 2 (two) times daily with meals., Disp: , Rfl: Cholecalciferol (VITAMIN D3) 16891 UNITS capsule, Take 1,000 Units by mouth daily., Di sp: , Rfl: fluticasone-salmeterol (ADVAIR) 500-50 MCG/DOSE diskus inhaler, Inhale 1 puff into the lungs 2 (two) times daily., Disp: , Rfl: HYDROcodone-acetaminophen (NORCO) 5-325 MG per tablet, Take 1 tablet by mouth every 6 (six) hours as needed for Pain., Disp: , Rfl: isosorbide mononitrate (IMDUR) 30 MG 24 hr tablet, Take 30 mg by mouth daily., Disp: , Rfl: Lactobacillus (ACIDOPHILUS PO), Take by mouth., Disp: , Rfl: loratadine (CLARITIN) 10 MG tablet, Take 10 mg by mouth daily., Disp: , Rfl: oxymetazoline (AFRIN) 0.05 % nasal, 1 spray by Each Nare route 2 (two) times daily., D isp: , Rfl: PARoxetine (PAXIL) 40 MG tablet, Take 40 mg by mouth every morning., Disp: , Rfl: quetiapine (SEROQUEL) 50 MG tablet, Take 50 mg by mouth nightly., Disp: , Rfl: spironolactone (ALDACTONE) 25 MG tablet, Take 25 mg by mouth daily., Disp: , Rfl: Allergies No Known Allergies FAMILY HISTORY Family History Problem Relation Age of Onset Cancer Mother Colon Cancer Colon cancer Mother Hypertension Mother Cancer Father Pancreatic Cancer Heart attack Father Pancreatic cancer Father Alcoholism Son Stroke Daughter Seizures Daughter Alcoholism Son Heart attack Sister Depression Sister Stroke Sister Diabetes Sister Heart attack Brother Alzheimer's disease Brother Parkinson's disease Brother Kidney disease Sister Heart disease Other SOCIAL HISTORY Social History Social History Marital status: Single Spouse name: N/A Number of children: 5 Years of education: N/A Occupational History Retired/Disabled Social History Main Topics Smoking status: Never Smoker Smokeless tobacco: Never Used Alcohol use No Drug use: No Sexual activity: Not on file Other Topics Concern Not on file Social History Narrative No narrative on file PHYSICAL EXAM Vital Signs: BP 124/62 (BP Location: Left upper arm, Patient Position: Sitting) | Pulse 66 | Ht 1.575 m (5' 2") | Wt 48.6 kg (107 lb 1.6 oz) | SpO2 95% | BMI 19.59 kg/m Constitutional: Well-developed. Neck: No JVD present. No thyromegaly present. Cardiovascular: Regular rhythm, S1 normal and S2 normal. No murmur heard. Pulses: Carotid pulses are 2+ on the right side, and 2+ on the left side. Radial pulses are 2+ on the right side, and 2+ on the left side. Pulmonary/Chest: Poor air exchange with no wheezing. Abdominal: Soft. No tenderness. Musculoskeletal: No edema. However very significant loss of muscle mass. Neurological: Alert. No cranial nerve deficit. Skin: Warm and dry. DATA Lab Results Component Value Date NA 140 12/14/2017 NA 143 12/06/2017 NA 136 05/25/2017 K 4.7 12/14/2017 K 5.2 (A) 12/06/2017 K 4.4 05/25/2017 CL 106 12/14/2017 CL 106 12/06/2017 CL 104 05/25/2017 CO2 21 12/14/2017 CO2 19 12/06/2017 CO2 24 05/25/2017 BUN 21 12/14/2017 BUN 27 (A) 12/06/2017 BUN 24 (A) 05/25/2017 CREATININE 1.38 (A) 12/14/2017 CREATININE 1.47 (A) 12/06/2017 CREATININE 1.40 (A) 05/25/2017 Lab Results Component Value Date CKMB 152 06/24/2014 CKMBINDEX 2.1 06/24/2014 TROPONINI 0.010 06/24/2014 Lab Results Component Value Date WBC 9.6 12/06/2017 WBC 6.4 05/25/2017 WBC 7.7 12/07/2016 HGB 12.6 12/06/2017 HGB 12.5 05/25/2017 HGB 12.0 12/07/2016 HCT 38.1 12/06/2017 HCT 37.5 05/25/2017 HCT 36.1 12/07/2016 MCV 96.7 12/06/2017 MCV 95.8 05/25/2017 MCV 95.4 12/07/2016 PLT 251 12/06/2017 PLT 198 05/25/2017 PLT 223 12/07/2016 Lab Results Component Value Date CHOL 176 11/17/2015 TRIG 129 11/17/2015 HDL 46.8 11/17/2015 LDL 103 (A) 11/17/2015 GLUF 124 (A) 12/14/2017 GLUF 105 (A) 12/06/2017 GLUF 112 (A) 05/25/2017 EK10/19/2017 From [facility] showed normal sinus rhythm with left bundle branch block. Last Echo: Sep 2016 Reported as technically difficult study, mild left ventricular hypertrophy with normal LV s ize and function, paradoxical septal motion secondary to left bundle branch block, EF 55-60% . Mildly enlarged left atrium. Mild mitral regurgitation. mobile intra-atrial septum. Last stress test: Last cath: Carotid US: AAA screening: Lower extremity US: OTHERS: ASSESSMENT & PLAN Patient is 77 y.o. with the following medical problems. 1. Chronic LBBB, noted previously from ECG tracing while patient had echocardiogram in 2016 . 2. Preserved LV function. No sign of volume overload, no LE edema. 3. Chronic obstructive pulmonary disease. 4. Shortness of breath, likely due to pulmonary disease. 5. Hypertension. 6. Chronic kidney disease stage III. Recommendations: At this time patient's symptoms are related to obstructive pulmonary disease, has been feel ing better since joining pulmonary rehab. No signs of congestive heart failure, no LE edema. LBBB is chronic. Patient can continue on Carvedilol, spironolactone. There is no indication for any invasive cardiac evaluation in the absence of clear anginal symptoms. Patient can follow up in a year or earlier if needed. Thank you for allowing me to participate in the care of this patient. Primary Care Physician: Silvana Lambert MD 01/25/2018in this encounter Plan of Treatment Not on fileas of this encounter Visit Diagnoses + + | Diagnosis | + + | Essential hypertension - Primary | + + | Unspecified essential hypertension | + + | CKD (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 disease), stage III | + + | LBBB (left bundle branch block) | + + | Other left bundle branch block | + + | Chronic obstructive pulmonary disease, unspecified COPD type (HCC) | + +
--- OUTSIDE RECORDS SUMMARY | 2018-01-31 16:26 | XMS | Encounter Summary ---
Demographics + + + | Address | [address] | | | [place] [address] | + + + | Home Phone | | + + + | Preferred Language | Unknown | + + + | Marital Status | Single | + + + | Yarsani Affiliation | 1041 | + + + | Race | Unknown | + + + | Ethnic Group | Unknown | + + + Author + + + | Author | [employer] | + + + | Organization | [facility] [employer] [facility] | + + + | Address [...] Team Providers + +------+ + | Care Motorsports Technician Name | Role | Phone | + +------+ + | Silvana Shoemaker ELECTRONEURODIAGNOSTIC TECHNOLOGIST | PCP | | + +------+ + Encounter Details +--------+ + + + + | Date | Type | Department | Care Team | Description | +--------+ + + + + | 12/07/ | Orders Only | [facility] | Brian, | Anemia, unspecified | | 2017 | | [address] | JAMIE Guzman | type; CKD (chronic | | | | [address] | | kidney disease), | | | | [place] [address] | | stage III; Essential | | | | [phone] | | hypertension; | | | | [...] Not on fileas of this encounter Results Uric acid (12/06/2017) + +---------+ + | Component | Value | Ref Range | + +---------+ + | URIC ACID | 7.5 (A) | 2.3 - 6.6 | + +---------+ + + + + | Specimen | Performing Laboratory | + + + | Blood | [facility] [address] [place] [address], [facility] [[email or web address] [address] [place] | | | [address] | + + + Renal function panel [...] + | Blood | [facility] [address], [facility] [[email or web address] [address] [place] | | | [address] | + + + PTH intact no [...] + | Blood | [facility] [address] [place] [address] [address] [place] | | | [address] | + + + CBC W/Auto Diff (Reflex to [...] + | Blood | [facility] [address], [address] [place], [place] | | | [address] | + + + Magnesium (12/06/2017) + +-------+ + | Component | Value | Ref Range | + +-------+ + | MAGNESIUM | 2.0 | 1.7 - 2.5 mg/dL | + +-------+ + + + + | Specimen | Performing Laboratory | + + + | Blood | [facility] [address], [address] [place], [place] | | | [address] | + + + in this encounter [...]
--- OUTSIDE RECORDS SUMMARY | 2018-01-31 16:26 | XMS | Encounter Summary ---
Demographics + + + | Address | [address] | | | [place] [address] | + + + | Home Phone | | + + + | Preferred Language | Unknown | + + + | Marital Status | Single | + + + | Rastafari Affiliation | 1041 | + + + | Race | Unknown | + + + | Ethnic Group | Unknown | + + + Author + + + | Author | [employer] | + + + | Organization | [facility] [employer] [facility] | + + + | Address [...] Team Providers + +------+ + | Care Gem Expert Name | Role | Phone | + +------+ + | Humberto Dempsey MD | PCP | Unavailable | + +------+ + Encounter Details +--------+ + + + + | Date | Type | Department | Care Team | Description | +--------+ + + + + | 11/09/ | Documentati | [facility] | [place]anda [place], | | | 2018 | on Only | Cardiology [place] | [address] | | | | | [address] | [address], | | | | | [facility] [place] | [place] [address] | | | | | [address] | [phone] | | | | | [phone] | | | +--------+ + + + [...]
--- OUTSIDE RECORDS SUMMARY | 2018-01-31 16:26 | XMS | Encounter Summary ---
Demographics + + + | Address | [address] | | | [place] [address] | + + + | Home Phone | | + + + | Preferred Language | Unknown | + + + | Marital Status | Single | + + + | Adventist Affiliation | 1041 | + + + | Race | Unknown | + + + | Ethnic Group | Unknown | + + + Author + + + | Author | [employer] | + + + | Organization | [facility] [employer] [facility] | + + + | Address [...] Team Providers + +------+ + | Care Tax Accounting Manager Name | Role | Phone | + +------+ + | Silvana Shoemaker NP | PCP | | + +------+ + Encounter Details +--------+---------+ + + + | Date | Type | Department | Care Team | Description | +--------+---------+ + + + | 12/09/ | Office | [facility] | Will Rowan, | CKD (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 | | 2018 | Visit | [place] [address] | YANNA COHEN | disease), stage III | | | | [address] | [address] | (Primary Dx); | | | | [address], [place] | [place] [address] | Essential | | | | [address] | [phone] | hypertension; | | | | | | Proteinuria, | | | | | | unspecified type | +--------+---------+ + + + Social History + +-------+ [...] + + + | Blood Pressure | 128/62 | 12/09/2017 1:08 PM PST | + + + + | Pulse | 71 | 12/09/2017 1:08 PM PST | + + + + | Temperature | 36.4 C (97.6 F) | 12/09/2017 1:08 PM PST | + + + + | Respiratory Rate | - | - | + + + + | Oxygen Saturation | 98% | 12/09/2017 1:08 PM PST | + + + + | Inhaled Oxygen | - | - | | Concentration | | | + + + + | Weight | 48.7 kg (107 lb 4.8 | 12/09/2017 1:08 PM PST | | | oz) | | + + + + | Height | 157.5 cm (5' 2") | 12/09/2017 1:08 PM PST | + + + + | Body Mass Index | 19.63 | 12/09/2017 1:08 PM PST | + + + + in this encounter Instructions Patient Instructions - Will Rowan ARNP - 12/09/2017 1:20 PM PST Medication Changes made at today's visit: None Next LAB WORK should be done in about: BMP in 1 week, then follow labs in 6 Months You do NOT need to fast for this lab work, keep hydrated. Next APPOINTMENT: in about 6 Months Other Instructions: Low Salt Diet Recommended Please have lab work done 1 weeks prior to your appointment. Make sure you are well hydrated prior to going to the lab and are able to give a urine s ample. Call the office with any questions or concerns. If you are taking a proton pump inhibitor, such as Protonix (omeprazole), talk to your [facility] care provider about if you need this medication long term care pharmacist. Call our office or your PCP if you have blood pressure over 150/90 on more than one occa molly, or have blood pressure concerns. If you experience diarrhea and /or vomiting for more than 24 hours with no relief please seek medical help. The treatments that are recommended to slow the progression of Chronic Kidney Disease in clude blood sugar control, blood pressure control, healthy body weight (BMI >= 30 kg/m2), av oid sedentary lifestyle, avoid smoking/ tobacco, glycemic control, avoid NSAIDs, early inter vention of worsening nausea, vomiting, or diarrhea and avoid IV contrast. I urge that you measure your BP at least daily, twice daily if you are able, record it a nd bring record to every appointment with every healthcare provider you see. Do not drink alcohol, caffeinated beverages, such as soda pop, coffee, espresso drinks, energy drinks. Please bring a list of your medications in the pharmacy bottles to every visit so a medi cation review can be done. Make all healthcare providers aware of the presence of kidney disease and request to adj ust all medications according to level of kidney function and to avoid nephrotoxic medicatio ns if possible, including but not limited to antibiotics. DO NOT TAKE any anti-inflammatory drugs such Ibuprofen, Diclofenac, Motrin, Advil, Hawthorne xicam, naprosyn (Aleve), Celebrex, decongestants containing pseudoephedrine (such as some fo kelly of Sudafed or Actifed) or herbal supplements (because of lack of FDA approval) Short term use of acetaminophen (Tylenol) for fever or pain is okay. If in doubt please call our office for verification. Avoid exposure to IV contrast agents (DYE) used in CT scans, MRI's, Fluoroscopy, or in h eart catheterization procedures unless necessary or for a life saving procedure. It is recommend that you get regular aerobic exercise, this would be 3 x a week, eat a l ow fat/low salt diet, and see your primary care provider (PCP) for health maintinance and pe riodic exams at least annually. If you smoke, you must quit. Smoking worsens kidney disease. in this encounter Progress Notes Will Rowan ARNP - 12/09/2017 1:20 PM PSTFormatting of this note may be different f rom the original. Patient Active Problem List Diagnosis HTN (hypertension) Anemia CKD (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 disease), stage III Proteinuria Stroke COPD (chronic obstructive pulmonary disease) Osteoarthritis Vitamin D deficiency Heart murmur Right renal mass Closed nondisplaced lateral mass fracture of first cervical vertebra (HCC) Dear Dr Shoemaker: I saw your patient Ms. Vo in the office today. she is here to F/U on her CKD & its c omplications. She reports a fall April 27 resulting in a fracture at C1. She was seeing neuro and her fx has resolved, she reports she still has daily headaches, she reports she takes tylenol and is effective. The patient has history of hypertension since the . her BP control has been reportedl y labile. she denies any history of prolonged exposure to NSAIDs or recent exposure to known nephrotoxins. she denies any recurrent nephrolithiasis or pyelonephritis. she tells me that she's had no history of urinary retention, gross hematuria or dysuria. she has no incontine nce symptoms. No symptoms of UTI. she has 1 nightly nocturia. No history of passing kidne y stones. she has no foamy urine either. her baseline Creatinine is 1.0. There is no family history of renal genetic diseases such as PKD. she says that she feels 'good ' today, c/o back aches - takes nothing for it, PATTER[place]. She has a chronic cough from copd. she denies any blurred vision tinnitus, headache, fever, chills, or cough. No nausea, vom iting, abdominal pain, diarrhea, melena, or hematochezia. No palpitation, dizziness, loss o f consciousness, orthopnea, paroxysmal nocturnal dyspnea, or leg edema. She does not check her BP at home, no log today. The following portions of the patient's history were reviewed and updated as appropriate: a llergies, current medications, past medical history, past social history, past surgical hist ory, family history and problem list. U/S from 09/2014, showing no evidence of any significant renal anatomic abnormalities, exce pt for a cyst in the upper pole of the right kidney with "some low level internal echoes". P ossible bladder trabeculation was noted. 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 There is significant right renal cortical scarring. The mass demonstrated on ultrasound represents either an elongated cyst or a dis torted calyx. Question a hepatic flexure mass. Diverticulosis. Large hiatal hernia, believ ed to be a paraesophageal type. As in History of Present Illness & in Assessment. All the pertinent systems were reviewed a nd were otherwise negative. Current Outpatient Prescriptions Medication Sig Dispense Refill alendronate (FOSAMAX) 70 MG tablet Take 70 mg by mouth every 7 days. Take in the mornin g with a full glass of water, on an empty stomach, and do not take anything else by mouth or lie down for the next 30 min. amLODIPine (NORVASC) 5 MG tablet Take 5 mg by mouth daily. arformoterol (BROVANA) 15 MCG/2ML NEBU Take 15 mcg by nebulization 2 (two) times daily. ascorbic acid (VITAMIN C) 500 MG tablet Take 500 mg by mouth daily. aspirin 81 MG EC tablet Take 81 mg by mouth daily with breakfast. atorvastatin (LIPITOR) 80 MG tablet Take 80 mg by mouth daily. budesonide (PULMICORT) 0.5 MG/2ML nebulizer suspension Take 0.5 mg by nebulization 2 (t wo) times daily. carvedilol (COREG) 25 MG tablet Take 25 mg by mouth 2 (two) times daily with meals. Cholecalciferol (VITAMIN D3) 90240 UNITS capsule Take 1,000 Units by mouth daily. diazepam (VALIUM) 5 MG tablet Take 5 mg by mouth every 6 (six) hours as needed for Anxi ety. fluticasone-salmeterol (ADVAIR) 500-50 MCG/DOSE diskus inhaler Inhale 1 puff into the l ungs 2 (two) times daily. HYDROcodone-acetaminophen (NORCO) 5-325 MG per tablet Take 1 tablet by mouth every 6 (s ix) hours as needed for Pain. isosorbide mononitrate (IMDUR) 30 MG 24 hr tablet Take 30 mg by mouth daily. Lactobacillus (ACIDOPHILUS PO) Take by mouth. loratadine (CLARITIN) 10 MG tablet Take 10 mg by mouth daily. oxymetazoline (AFRIN) 0.05 % nasal 1 spray by Each Nare route 2 (two) times daily. PARoxetine (PAXIL) 40 MG tablet Take 40 mg by mouth every morning. quetiapine (SEROQUEL) 50 MG tablet Take 50 mg by mouth nightly. spironolactone (ALDACTONE) 25 MG tablet Take 25 mg by mouth daily. traZODone (DESYREL) 50 MG tablet Take 50 mg by mouth nightly. No current facility-administered medications for this visit. Physical Exam: BP 128/62 (BP Location: Left upper arm, Patient Position: Sitting) | Pulse 71 | Temp 97.6 F (36.4 C) (Temporal) | Ht 1.575 m (5' 2") | Wt 48.7 kg (107 lb 4.8 oz) | SpO2 98% | BMI 19.63 kg/m General appearance: Pleasant, not in acute distress. Neck: Supple without tracheal deviation or jugular venous distension. Head and ENT: Head is atraumatic. The oropharynx is without erythema or thrush. Eyes: Anicteric. The extraocular muscle movements are normal. Lungs: Clear to auscultation bilaterally. There are no wheezes. Heart: Regular rate and rhythm without any rub, gallop. Grade 3 systolic murmur all over p recordium. Abdominal exam: Soft and nontender with normal bowel sounds. Musculoskeletal: No costovertebral angle tenderness bilaterally. Extremities: Warm to touch with no leg edema. There is no cyanosis. Skin: There are no rashes, petechiae, or ecchymosis. Neurological: Awake, alert, and oriented to time, place, and person. Normal gross motor po wer. There is no asterixis. Psychiatric: The patient s behavior is normal. Judgment and thought content are normal. Lab Results Component Value Date BUN 27 (A) 12/06/2017 CREATININE 1.47 (A) 12/06/2017 EGFR 34 12/06/2017 NA 143 12/06/2017 K 5.2 (A) 12/06/2017 CL 106 12/06/2017 CO2 19 12/06/2017 CA 9.1 12/06/2017 MG 2.0 12/06/2017 ALB 3.9 12/06/2017 HGB 12.6 12/06/2017 URICACID 7.5 (A) 12/06/2017 WBC 9.6 12/06/2017 HCT 38.1 12/06/2017 FERRITIN 142.0 05/31/2016 LABIRON 24.6 05/31/2016 LABPROT 125.0 12/07/2017 [id number] 54 05/31/2016 Assessment: Ms. Vo is a 77 y.o. female patient with stage IIIA CKD on a background of hypertension . However, I cannot rule out the possibility of an old tubulo-interstitial or glomerular inj ury from exposure to an agent or substance that is long gone now. Another way to explain the low GFR, at least in part, is by normal aging. This is associated with diffuse sclerosis of glomeruli such that 30 percent of glomeruli may be nonfunctional by age 75. The remaining g lomeruli have impaired filtering ability too, but to different degrees. RENAL FUNCTION: Relatively stable for her BLOOD PRESSURE: Unknown control at home BLOOD SUGAR: Reports it normal ELECTROLYTES: Mild hyperK now ANEMIA: Mild VITAMIN D: Deficiency is being treated PARATHYROID HORMONE: Ok URIC ACID: Mildly up PROTEINURIA: Mild URINALYSIS: No UTI or hematuria VOLUME STATUS: Euvolumic. Discussions/Recommendations: I discussed today with Ms.. Vo the meaning of her CKD and the interaction of that with her HTN. I stressed the importance of keeping her BP controlled and avoiding getting dehyd rated if we are to have a chance at helping preserve her renal function. She showed good un derstanding. I gave her instructions on how to chart her blood pressure in the appropriate manner at home. She is to call us if they fall outside of the optimal provided range. She will bring her sphygmomanometer for validation once a year. She will strictly abide by a lo w salt diet and will avoid all kinds of NSAIDs for analgesia. PLAN: BMP in 1 week to check potassium. No medication changes today BP Charting: she will bring me back her home BP charts in 2 weeks. At that time, I will decide whether any changes to her vasoactive regimen are warranted. Follow up labs include: RFP, Magnesium, CBC, intact PTH, uric acid, Urine total protein- to-creatinine ratio and other labs as indicated. Discussed to avoid alcohol and caffeine. Patient has expressed understanding of today's instructions, all questions have been ans wered to their satisfaction and written instructions have been provided. She will continue to F/U with your office regularly. She will have labs done before she comes back in [address] Shoemaker for the opportunity to follow up with this patient and be part of the care team. Please do not hesitate to call me at any time with questions or concerns. Truly yours, Will RAIENS [facility] This note prepared with voice recognition software, if any questions concerning spelling an d/or grammar, please call. in this encounter Plan of Treatment Not on [...] + | Blood | [facility] [address] [facility] [address] [place] | | | [address] | + + + in this encounter Visit Diagnoses + + | Diagnosis | + + | CKD (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 disease), stage III - Primary | + + | Essential hypertension | + + | Unspecified essential hypertension | + + | Proteinuria, unspecified type | + +
--- OUTSIDE RECORDS SUMMARY | 2018-01-31 16:26 | XMS | Encounter Summary ---
Demographics + + + | Address | [address] | | | [place] [address] | + + + | Home Phone | | + + + | Preferred Language | Unknown | + + + | Marital Status | Single | + + + | Jehovah'S Witness Affiliation | 1041 | + + + | Race | Unknown | + + + | Ethnic Group | Unknown | + + + Author + + + | Author | [employer] | + + + | Organization | [facility] [employer] [facility] | + + + | Address [...] Team Providers + +------+ + | Care Hardening Machine Operator Name | Role | Phone | + +------+ + | Silvana Shoemaker NP | PCP | | + +------+ + Reason for Visit + + + | Reason | Comments | + + + | Labs Only | [facility] - 12/06/17 - rita | + + + Encounter Details +--------+ + + + + | Date | Type | Department | Care Team | Description | +--------+ + + + + | 12/07/ | Documentati | [facility] | Brian, | Labs Only ([facility] | | 2018 | on Only | [address] | [place] | - 12/06/17 - | | | | [address] | | rita) | | | | [place] [address] | | | | | | [phone] | | | +--------+ + + + [...]
--- OUTSIDE RECORDS SUMMARY | 2018-01-31 16:27 | XMS | Clinical Summary ---
Demographics + + + | Address | [address] | | | [place] [address] | + + + | Home Phone | | + + + | Preferred Language | Unknown | + + + | Marital Status | Single | + + + | Orthodox Affiliation | 1041 | + + + | Race | Unknown | + + + | Ethnic Group | Unknown | + + + Author + + + | Author | [employer] | + + + | Organization | [facility] [employer] [facility] | + + + | Address [...] Team Providers + +------+ + | Care Financial Aid Advisor Name | Role | Phone | + +------+ + | Silvana Shoemaker BURGLAR ALARM OPERATOR | PP | | + +------+ + [...] | | Activ | | (VITAMIN D3) 525[address] | mouth daily. 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 | disease), stage III | | | [...] | | 2017 | | | Megan REPAIRER AND CHECKER | type; CKD (chronic | | | [...] + + | Blood | [facility] [address] [place] [address] [place] | | | [address] | + + + Urinalysis (reflex to [...] | [place] | | | [address] | + + + + + | [...] | + + + | Urine | [address] | | | [address] | + + + + + | [...] + + | Blood | [facility] [address] [place] [address] | | | [address] | + + + Uric acid (12/06/2017) + +---------+ + | Component | Value | Ref Range | + +---------+ + | URIC ACID | 7.5 (A) | 2.3 - 6.6 | + +---------+ + + + + | Specimen | Performing Laboratory | + + + | Blood | [facility] [address], [facility] [address], [place] | | | [address] | + + + PTH intact no [...] + | Blood | [facility] [address], [address] [place], [place] | | | [address] | + + + Magnesium (12/06/2017) + +-------+ + | Component | Value | Ref Range | + +-------+ + | MAGNESIUM | 2.0 | 1.7 - 2.5 mg/dL | + +-------+ + + + + | Specimen | Performing Laboratory | + + + | Blood | [facility] [address] [facility] [address] [place] | | | [address] | + + + Renal function panel [...] | + + + | Blood | [facility] [address] [place] [address] | | | [address] | + + + from Last 3 [...] RE | | | | [place] [address] | | | IP-OP | | | | | + +--------+ +------+-------+ + | MEDICAID | MEDICA | [id number] | | | [address] | | | ID | | | | [place] | | | [place] | | | | [address] | + +--------+ +------+-------+ + + +--------+ [...] | | | | | | | [address] | + +--------+ +--------+ + +
--- OUTSIDE RECORDS SUMMARY | 2018-01-31 16:27 | XMS | Encounter Summary ---
Demographics + + + | Address | [address] | | | [place] [address] | + + + | Home Phone | | + + + | Preferred Language | Unknown | + + + | Marital Status | Single | + + + | Catholic Affiliation | 1041 | + + + | Race | Unknown | + + + | Ethnic Group | Unknown | + + + Author + + + | Author | [facility] | + + + | Organization | [facility] [facility] [employer] [facility] | + + + | Address [...] Team Providers + +------+ + | Care Final Cigar And Box Examiner Name | Role | Phone | + [...] + | 04// | Documentati | [facility] | Joaor, | Labs Only | | 2018 | on Only | Cardiology Chuck | BHAKTI Mancia | | | | | [address] [place] | | | | | | [place] | | | | | | [address] | | | | | | [phone] | | | +--------+ + + + [...]
--- OUTSIDE RECORDS SUMMARY | 2018-01-31 16:27 | XMS | Encounter Summary ---
Demographics + + + | Address | [address] | | | [place] [address] | + + + | Home Phone | | + + + | Preferred Language | Unknown | + + + | Marital Status | Single | + + + | Zoroastrianism Affiliation | 1041 | + + + | Race | Unknown | + + + | Ethnic Group | Unknown | + + + Author + + + | Author | [email or web address] [facility] | + + + | Organization | [facility] [facility] | + + + | Address [...] Team Providers + +------+ + | Care Clinical Microbiologist Name | Role | Phone | + [...] | | | | h block, | [place], | Dr [address] | | | | | unspecified | [place] [address] | [place], [place] | | | | | | Phone: | [phone] Phone: | | | | | [employer] | [phone] | [phone] | | | | | tic heart | Fax: | Fax: | | | | | disease of | [phone] | [phone] | | | | | seminole | | | | | | | [...] + | 01/25/ | Initial | [facility] | Noa Lawanda, | Essential | | 2018 | consult | Cardiology [place] | [address] | hypertension | | | | [address] | Dr Zambrano, | (Primary Dx); CKD | | | | [address] | [place] [address] | (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 | | | | [place] [address] | [phone] | disease), stage III; | | | | [phone] | | LBBB (left bundle | | [...] may be different fro m the original. [facility]: Cardiology Initial Consult Note Name of Arc And Gas Welder: Lawanda Lambert MD Reason for Consultation: Left [...] feeling better since. Used to live in [place] and moved to [facility] around 5 years ago. REVIEW OF SYSTEMS [...] meals., Disp: , Rfl: Cholecalciferol (VITAMIN D3) 11753 UNITS capsule, Take 1,000 Units by mouth [...] 12/06/2017 GLUF 112 (A) 05/25/2017 EK10/19/2017 From [facility] showed normal sinus rhythm with left bundle [...]
--- OUTSIDE RECORDS SUMMARY | 2018-01-31 16:27 | XMS | Encounter Summary ---
Demographics + + + | Address | [address] | | | [place] [address] | + + + | Home Phone | | + + + | Preferred Language | Unknown | + + + | Marital Status | Single | + + + | Congregation Affiliation | 1041 | + + + | Race | Unknown | + + + | Ethnic Group | Unknown | + + + Author + + + | Author | [employer] | + + + | Organization | [facility] [employer] | + + + | Address [...] Team Providers + +------+ + | Care Web Assistant Name | Role | Phone | + [...] | | | | | | [place] | | | | | | [address] | | | | | | [phone] | | | +--------+ + + + [...]
--- OUTSIDE RECORDS SUMMARY | 2018-01-31 16:27 | XMS | Encounter Summary ---
Demographics + + + | Address | [address] | | | [place] [address] | + + + | Home Phone | | + + + | Preferred Language | Unknown | + + + | Marital Status | Single | + + + | Sikh Affiliation | 1041 | + + + | Race | Unknown | + + + | Ethnic Group | Unknown | + + + Author + + + | Author | [employer] | + + + | Organization | [facility] [employer] [facility] | + + + | Address [...] Team Providers + +------+ + | Care Carbonizer Name | Role | Phone | + [...] | | 12/14/2017) | | | | [place] [address] | | | | | | [phone] | | | +--------+ + + + [...]
--- OUTSIDE RECORDS SUMMARY | 2018-01-31 16:32 | XMS | Encounter Summary ---
Demographics + + + | Address | [address] | | | [place] [address] | + + + | Home Phone | | + + + | Preferred Language | Unknown | + + + | Marital Status | Single | + + + | Methodist Affiliation | 1041 | + + + | Race | Unknown | + + + | Ethnic Group | Unknown | + + + Author + + + | Author | [employer] | + + + | Organization | [facility] [employer] [facility] | + + + | Address [...] Team Providers + +------+ + | Care Oracle Obiee Developer Name | Role | Phone | + +------+ + | Silvana Shoemaker BREAD SUPERVISOR | PCP | | + +------+ + [...] Essential | | | | [place] [address] | | hypertension; | | | | [phone] | | Proteinuria, | | | | [...] + | Blood | [facility] [address] [facility] [address] [place] | | | [address] | + + + in this encounter Visit Diagnoses + + | Diagnosis | + + | CKD (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 disease), stage III | + + | Essential hypertension | + + | Unspecified essential hypertension | + + | Proteinuria, unspecified type | + +"
--- OUTSIDE RECORDS SUMMARY | 2018-01-31 16:32 | XMS | Encounter Summary ---
Demographics + + + | Address | [address] | | | [place] [address] | + + + | Home Phone | | + + + | Preferred Language | Unknown | + + + | Marital Status | Single | + + + | Methodist Affiliation | 1041 | + + + | Race | Unknown | + + + | Ethnic Group | Unknown | + + + Author + + + | Author | [employer] | + + + | Organization | [facility] [employer] [facility] | + + + | [...] Team Providers + +------+ + | Care Side Panel Hanger Name | Role | Phone | + [...] Dr Zambrano, | | | | | [place] | [place] [address] | | | | | [address] | [phone] | | | | | [phone] | | | +--------+ + + + [...]
--- OUTSIDE RECORDS SUMMARY | 2018-01-31 16:32 | XMS | Encounter Summary ---
Demographics + + + | Address | [address] | | | [place] [address] | + + + | Home Phone | | + + + | Preferred Language | Unknown | + + + | Marital Status | Single | + + + | Yarsanism Affiliation | 1041 | + + + | Race | Unknown | + + + | Ethnic Group | Unknown | + + + Author + + + | Author | [employer] | + + + | Organization | [facility] [employer] [facility] | + + + | Address [...] Team Providers + +------+ + | Care Blood Bank Booking Clerk Name | Role | Phone | + [...] | | 2018 | on Only | [address] | JAMIE Guzman | - 12/06/17 - | | | | [address] | | rita) | | | | [place] [address] | | | | | | [phone] | | | +--------+ + + + [...]
--- OUTSIDE RECORDS SUMMARY | 2018-01-31 16:32 | XMS | Encounter Summary ---
Demographics + + + | Address | [address] | | | [place] [address] | + + + | Home Phone | | + + + | Preferred Language | Unknown | + + + | Marital Status | Single | + + + | Rastafarian Affiliation | 1041 | + + + | Race | Unknown | + + + | Ethnic Group | Unknown | + + + Author + + + | Author | [employer] | + + + | Organization | [facility] [employer] [facility] | + + + | Address [...] Team Providers + +------+ + | Care Office Technology Professor Name | Role | Phone | + +------+ + | Silvana Shoemaker NP | PCP | | + +------+ + Encounter Details +--------+---------+ + + + | Date | Type | Department | Care Team | Description | +--------+---------+ + + + | 12/09/ | Office | [facility] | Will Rowan, | CKD (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 | | 2018 | Visit | [address] | [place] | disease), stage III | | | | [address] | [address] | (Primary Dx); | | | | [address] [place], [place] | [place] [address] | Essential | | | | [address] | [phone] | hypertension; | | | | | [...] such as Protonix (omeprazole), talk to your [facility] care provider about if you need this medication terminal manager. Call our office or your PCP if [...] times daily with meals. Cholecalciferol (VITAMIN D3) 09341 UNITS capsule Take 1,000 Units by mouth [...] 05/31/2016 LABIRON 24.6 05/31/2016 LABPROT 125.0 12/07/2017 [id number] 54 05/31/2016 Assessment: Ms. Vo is a [...] with questions or concerns. Truly yours, Will RAINES [facility] Nephrology This note prepared with voice recognition [...] + | Blood | [facility] [address] [facility] [address] [place] | | | [address] | + + + in this encounter Visit Diagnoses + + | Diagnosis | + + | CKD (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 disease), stage III - Primary | + + | Essential hypertension | + + | Unspecified essential hypertension | + + | Proteinuria, unspecified type | + +
--- OUTSIDE RECORDS SUMMARY | 2018-01-31 16:32 | XMS | Encounter Summary ---
Demographics + + + | Address | [address] | | | [place] [address] | + + + | Home Phone | | + + + | Preferred Language | Unknown | + + + | Marital Status | Single | + + + | Faith Affiliation | 1041 | + + + | Race | Unknown | + + + | Ethnic Group | Unknown | + + + Author + + + | Author | [employer] | + + + | Organization | [facility] [employer] [facility] | + + + | Address [...] Team Providers + +------+ + | Care Way Inspector Name | Role | Phone | + +------+ + | Silvana Shoemaker PURCHASING COORDINATOR | PCP | | + +------+ + [...] disease), | | | | [place] [address] | | stage III; Essential | | | | [phone] | | hypertension; | | | | [...] + + | Blood | [facility] [address] [place] [address], [facility] [address] [place] | | | [address] | + + + Renal function panel [...] + | Blood | [facility] [address] [place], [facility] [address] [place] | | | [address] | + + + PTH intact no [...] + + | Blood | [facility] [address] [place] [address] [address] [place] | | | [address] | + + + CBC W/Auto Diff [...] + | Blood | [facility] [address] [place], [address] [place], [place] | | | [address] | + + + Magnesium (12/06/2017) + +-------+ + | Component | Value | Ref Range | + +-------+ + | MAGNESIUM | 2.0 | 1.7 - 2.5 mg/dL | + +-------+ + + + + | Specimen | Performing Laboratory | + + + | Blood | [facility] [address] [place], [address] [place], [place] | | | [address] | + + + in this encounter [...]
--- OUTSIDE RECORDS SUMMARY | 2018-01-31 16:32 | XMS | Encounter Summary ---
Demographics + + + | Address | [address] | | | [place] [address] | + + + | Home Phone | | + + + | Preferred Language | Unknown | + + + | Marital Status | Single | + + + | Pentecostalism Affiliation | 1041 | + + + | Race | Unknown | + + + | Ethnic Group | Unknown | + + + Author + + + | Author | [employer] | + + + | Organization | [facility] [employer] [facility] | + + + | Address [...] Team Providers + +------+ + | Care Manager Administrative Name | Role | Phone | + +------+ + | Silvana Shoemaker INGOT PASSER | PCP | | + +------+ + [...] disease), | | | | [place] [address] | | stage III; Essential | | | | [phone] | | hypertension; | | | | [...] Laboratory | + + + | | [facility] [address] [address] [place] | | | [address] | + + + + + | [...] | + + + | Urine | [address] | | | [address] | + + + + + | [...]
== END 2018-01-31 17:35 | disposition home or self-care (01) ==
LOC: ED 16:01
DX: S00.03XA Contusion of scalp, initial encounter (principal); E78.00 Pure hypercholesterolemia, unspecified; F32.9 Major depressive disorder, single episode, unspecified; J44.9 Chronic obstructive pulmonary disease, unspecified; Z79.82 Long term (current) use of aspirin; Z79.899 Other long term (current) drug therapy; W19.XXXA Unspecified fall, initial encounter; W22.8XXA Striking against or struck by other objects, initial encounter
CPT/HCPCS: 99283

== ENCOUNTER 2018-02-05 10:55 | Emergency (ER) | payer MEDICARE, OTHER ==
[~2018-02-05] VITALS: Ht 157.5 cm; Wt 48.5 kg
--- OUTSIDE RECORDS SUMMARY | ~2018-02-05 | XMS | Encounter Summary ---
Demographics + + + | Address | [address] | | | [place] [address] | + + + | Home Phone | | + + + | Preferred Language | Unknown | + + + | Marital Status | Single | + + + | Lutheran Affiliation | 1041 | + + + | Race | Unknown | + + + | Ethnic Group | Unknown | + + + Author + + + | Author | [employer] | + + + | Organization | [facility] [employer] [facility] | + + + | Address [...] Team Providers + +------+ + | Care Junior High School Teacher Name | Role | Phone | + +------+ + | Silvana Shoemaker CONFERENCE CONCIERGE | PCP | | + +------+ + [...] disease), | | | | [place] [address] | | stage III; Essential | | | | [phone] | | hypertension; | | | | [...] Laboratory | + + + | | [facility] [place] [address] [place] | | | [address] | + + + + + | [...] | + + + | Urine | [address] | | | [address] | + + + + + | [...]
--- OUTSIDE RECORDS SUMMARY | ~2018-02-05 | XMS | Encounter Summary ---
Demographics + + + | Address | [address] | | | [place] [address] | + + + | Home Phone | | + + + | Preferred Language | Unknown | + + + | Marital Status | Single | + + + | Mosque Affiliation | 1041 | + + + | Race | Unknown | + + + | Ethnic Group | Unknown | + + + Author + + + | Author | [employer] easy[employer]map | + + + | Organization | [facility] [employer] [facility] | + + + | Address [...] Team Providers + +------+ + | Care Cloth Boil Off Machine Operator Name | Role | Phone | + +------+ + | Silvana Shoemaker ELECTRICAL SOLDERER | PCP | | + +------+ + [...] Essential | | | | [place] [address] | | hypertension; | | | | [phone] | | Proteinuria, | | | | [...] + | Blood | [facility] [address] [facility] [address] [place] | | | [address] | + + + in this encounter Visit Diagnoses + + | Diagnosis | + + | CKD (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 disease), stage III | + + | Essential hypertension | + + | Unspecified essential hypertension | + + | Proteinuria, unspecified type | + +"
--- OUTSIDE RECORDS SUMMARY | ~2018-02-05 | XMS | Encounter Summary ---
Demographics + + + | Address | [address] | | | [place] [address] | + + + | Home Phone | | + + + | Preferred Language | Unknown | + + + | Marital Status | Single | + + + | Caodaism Affiliation | 1041 | + + + | Race | Unknown | + + + | Ethnic Group | Unknown | + + + Author + + + | Author | [employer] | + + + | Organization | [facility] [facility] [employer] | + + + | Address [...] Team Providers + +------+ + | Care Hair Boiler Operator Name | Role | Phone | + +------+ + | Silvana Shoemaker HAND WOOD SANDER | PCP | | + +------+ + Encounter Details +--------+ + + + + | Date | Type | Department | Care Team | Description | +--------+ + + + + | 12/07/ | Orders Only | [facility] | Brian, | Anemia, unspecified | | 2017 | | [address] | JAMIE Guzman | type; CKD (chronic | | | | [address] | | kidney disease), | | | | [place] [address] | | stage III; Essential | | | | [phone] | | hypertension; | | | | [...] + + | Blood | [facility] [address] [place] [address], [facility] [address] [place] | | | [address] | + + + Renal function panel [...] + | Blood | [facility] [address] [place], [facility] [address] [place] | | | [address] | + + + PTH intact no [...] + + | Blood | [facility] [address] [place] [address] [address] [place] | | | [address] | + + + CBC W/Auto Diff [...] + | Blood | [facility] [address] [place], [address] [place], [place] | | | [address] | + + + Magnesium (12/06/2017) + +-------+ + | Component | Value | Ref Range | + +-------+ + | MAGNESIUM | 2.0 | 1.7 - 2.5 mg/dL | + +-------+ + + + + | Specimen | Performing Laboratory | + + + | Blood | [facility] [address], [address] [place], [place] | | | [address] | + + + in this encounter [...]
--- OUTSIDE RECORDS SUMMARY | ~2018-02-05 | XMS | Encounter Summary ---
Demographics + + + | Address | [address] | | | [place] [address] | + + + | Home Phone | | + + + | Preferred Language | Unknown | + + + | Marital Status | Single | + + + | Mu-Ism Affiliation | 1041 | + + + | Race | Unknown | + + + | Ethnic Group | Unknown | + + + Author + + + | Author | [employer] | + + + | Organization | [facility] [employer] | + + + | Address [...] Team Providers + +------+ + | Care Precision Jig Grinder Name | Role | Phone | + [...] + | 04// | Documentati | [facility] | Joaor, | Labs Only | | 2018 | on Only | Cardiology Chuck | [address] | | | | | [address] [place] | | | | | | [place] | | | | | | [address] | | | | | | [phone] | | | +--------+ + + + [...]
--- OUTSIDE RECORDS SUMMARY | ~2018-02-05 | XMS | Encounter Summary ---
Demographics + + + | Address | [address] | | | [place] [address] | + + + | Home Phone | | + + + | Preferred Language | Unknown | + + + | Marital Status | Single | + + + | Cheondoism Affiliation | 1041 | + + + | Race | Unknown | + + + | Ethnic Group | Unknown | + + + Author + + + | Author | [employer] | + + + | Organization | [facility] [employer] [facility] | + + + | Address [...] Team Providers + +------+ + | Care Kitchen Runner Name | Role | Phone | + +------+ + | Silvana Shoemaker NP | PCP | | + +------+ + Encounter Details +--------+---------+ + + + | Date | Type | Department | Care Team | Description | +--------+---------+ + + + | 12/09/ | Office | [facility] | Will Rowan, | CKD (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 | | 2018 | Visit | [place] [address] | [place] | disease), stage III | | | | [place] | [address] | (Primary Dx); | | | | [address], [place] | [place] [address] | Essential | | | | [address] | [phone] | hypertension; | | | | | [...] such as Protonix (omeprazole), talk to your [facility] care provider about if you need this medication terminal operator. Call our office or your PCP if [...] times daily with meals. Cholecalciferol (VITAMIN D3) 28423 UNITS capsule Take 1,000 Units by mouth [...] 05/31/2016 LABIRON 24.6 05/31/2016 LABPROT 125.0 12/07/2017 [id number] 05/31/2016 Assessment: Ms. Vo is a [...] questions or concerns. Truly yours, Will RAINES [facility] Nephrology This note prepared with voice recognition [...] + | Blood | [facility] [address] [facility] [address] [place] | | | [address] | + + + in this encounter Visit Diagnoses + + | Diagnosis | + + | CKD (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 disease), stage III - Primary | + + | Essential hypertension | + + | Unspecified essential hypertension | + + | Proteinuria, unspecified type | + +
--- OUTSIDE RECORDS SUMMARY | ~2018-02-05 | XMS | Encounter Summary ---
Demographics + + + | Address | [address] | | | [place] [address] | + + + | Home Phone | | + + + | Preferred Language | Unknown | + + + | Marital Status | Single | + + + | Confucianist Affiliation | 1041 | + + + | Race | Unknown | + + + | Ethnic Group | Unknown | + + + Author + + + | Author | [employer] | + + + | Organization | [facility] [employer] | + + + | Address [...] Team Providers + +------+ + | Care Fountain Vending Mechanic Name | Role | Phone | + +------+ + | Silvana Shoemaker DRAPERY HEAD FORMER | PCP | | + +------+ + [...] disease), | | | | [place] [address] | | stage III; Essential | | | | [phone] | | hypertension; | | | | [...] Laboratory | + + + | | [facility] [place] [address] [place] | | | [address] | + + + + + | [...] | + + + | Urine | [address] | | | [address] | + + + + + | [...]
--- OUTSIDE RECORDS SUMMARY | ~2018-02-05 | XMS | Encounter Summary ---
Demographics + + + | Address | [address] | | | [place] [address] | + + + | Home Phone | | + + + | Preferred Language | Unknown | + + + | Marital Status | Single | + + + | Islam Affiliation | 1041 | + + + | Race | Unknown | + + + | Ethnic Group | Unknown | + + + Author + + + | Author | [employer] | + + + | Organization | [facility] [employer] [facility] | + + + | Address [...] Team Providers + +------+ + | Care Blending Tank Tender Name | Role | Phone | + [...] | | 12/14/2017) | | | | [place] [address] | | | | | | [phone] | | | +--------+ + + + [...]
--- OUTSIDE RECORDS SUMMARY | ~2018-02-05 | XMS | Encounter Summary ---
Demographics + + + | Address | [address] | | | [place] [address] | + + + | Home Phone | | + + + | Preferred Language | Unknown | + + + | Marital Status | Single | + + + | Mu-Ism Affiliation | 1041 | + + + | Race | Unknown | + + + | Ethnic Group | Unknown | + + + Author + + + | Author | [employer] | + + + | Organization | [facility] [employer] [facility] | + + + | Address [...] Providers + +------+ + | Care Manager Trade Marketing Name | Role | Phone | + +------+ + | Silvana Shoemaker BIODIESEL PROCESS CONTROL TECHNICIAN | PCP | | + +------+ + [...] disease), | | | | [place] [address] | | stage III; Essential | | | | [phone] | | hypertension; | | | | [...] + + | Blood | [facility] [address] [place] [address], [facility] [address] [place] | | | [address] | + + + Renal function panel [...] + | Blood | [facility] [address] [place], [facility] [address] [place] | | | [address] | + + + PTH intact no [...] + + | Blood | [facility] [address] [place] [address] [address] [place] | | | [address] | + + + CBC W/Auto Diff [...] + | Blood | [facility] [address] [place], [address] [place], [place] | | | [address] | + + + Magnesium (12/06/2017) + +-------+ + | Component | Value | Ref Range | + +-------+ + | MAGNESIUM | 2.0 | 1.7 - 2.5 mg/dL | + +-------+ + + + + | Specimen | Performing Laboratory | + + + | Blood | [facility] [address] [place], [address] [place], [place] | | | [address] | + + + in this encounter [...]
--- OUTSIDE RECORDS SUMMARY | ~2018-02-05 | XMS | Encounter Summary ---
Demographics + + + | Address | [address] | | | [place] [address] | + + + | Home Phone | | + + + | Preferred Language | Unknown | + + + | Marital Status | Single | + + + | Mosque Affiliation | 1041 | + + + | Race | Unknown | + + + | Ethnic Group | Unknown | + + + Author + + + | Author | [employer]™ | + + + | Organization | [facility] [employer] | + + + | [...] Team Providers + +------+ + | Care Birth Certificate Clerk Name | Role | Phone | [...] Dr [address], | | | | | [facility] [place] | [place] [address] | | | | | [address] | [phone] | | | | | [phone] | | | +--------+ + + + [...]
--- OUTSIDE RECORDS SUMMARY | ~2018-02-05 | XMS | Encounter Summary ---
Demographics + + + | Address | [address] | | | [place] [address] | + + + | Home Phone | | + + + | Preferred Language | Unknown | + + + | Marital Status | Single | + + + | Synagogue Affiliation | 1041 | + + + | Race | Unknown | + + + | Ethnic Group | Unknown | + + + Author + + + | Author | [employer] | + + + | Organization | [facility] [employer] [facility] | + + + | Address [...] Team Providers + +------+ + | Care Baking Factory Worker Name | Role | Phone | + +------+ + | Silvana Shoemaker DIRECTOR CLINICAL DATA | PCP | | + +------+ + [...] Essential | | | | [place] [address] | | hypertension; | | | | [phone] | | Proteinuria, | | | | [...] + | Blood | [facility] [address] [facility] [address] [place] | | | [address] | + + + in this encounter Visit Diagnoses + + | Diagnosis | + + | CKD (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 disease), stage III | + + | Essential hypertension | + + | Unspecified essential hypertension | + + | Proteinuria, unspecified type | + +"
--- OUTSIDE RECORDS SUMMARY | ~2018-02-05 | XMS | Encounter Summary ---
Demographics + + + | Address | [address] | | | [place] [address] | + + + | Home Phone | | + + + | Preferred Language | Unknown | + + + | Marital Status | Single | + + + | Evangelical Affiliation | 1041 | + + + | Race | Unknown | + + + | Ethnic Group | Unknown | + + + Author + + + | Author | [employer] | + + + | Organization | [facility] [employer] [facility] | + + + | Address [...] Team Providers + +------+ + | Care Postal Transportation Clerk Name | Role | Phone | [...] + | 04// | Documentati | [facility] [place] | Joaor, | Labs Only | | 2018 | on Only | Cardiology Chuck | [address]AK[address] | | | | | [address] [place] | | | | | | [place] | | | | | | [address] | | | | | | [phone] | | | +--------+ + + + [...]
--- OUTSIDE RECORDS SUMMARY | ~2018-02-05 | XMS | Clinical Summary ---
Demographics + + + | Address | [address] | | | [place] [address] | + + + | Home Phone | | + + + | Preferred Language | Unknown | + + + | Marital Status | Single | + + + | Buddhist Affiliation | 1041 | + + + | Race | Unknown | + + + | Ethnic Group | Unknown | + + + Author + + + | Author | [employer] | + + + | Organization | [facility] [employer] [facility] | + + + | Address [...] Team Providers + +------+ + | Care Employment Programs Analyst Name | Role | Phone | + +------+ + | Silvana Shoemaker RIVETER HAND | PP | | + +------+ + [...] | | Activ | | (VITAMIN D3) [address] | mouth daily. | | | | [...] | | 2018 | Visit | | BACK TENDER | disease), stage III | | | [...] | | 2017 | | | Megan BITUMINOUS PAVING MACHINE OPERATOR | type; CKD (chronic | | | [...] LABORATORY 1100 [facility] [address] [place], [place] | | | [address] | + + + Urinalysis (reflex to [...] | [place] | | | [address] | + + + + + | [...] | + + + | Urine | [facility] [address] [place] [address] [place] | | | [address] | + + + + + | [...] + | Blood | [facility] [address], [address] [place], [place] | | | [address] | + + + Uric acid (12/06/2017) + +---------+ + | Component | Value | Ref Range | + +---------+ + | URIC ACID | 7.5 (A) | 2.3 - 6.6 | + +---------+ + + + + | Specimen | Performing Laboratory | + + + | Blood | [facility] [address], [address] [place], [place] | | | [address] | + + + PTH intact no [...] + | Blood | [facility] [address], [facility] [address] [place] | | | [address] | + + + Magnesium (12/06/2017) + +-------+ + | Component | Value | Ref Range | + +-------+ + | MAGNESIUM | 2.0 | 1.7 - 2.5 mg/dL | + +-------+ + + + + | Specimen | Performing Laboratory | + + + | Blood | [facility] [address] [place] [address], [facility] [address] [place], [place] | | | [address] | + + + Renal function panel [...] LABORATORY 1100 [facility] [address] [place], [place] | | | [address] | + + + from Last 3 [...] RE | | | | [place] [address] | | | IP-OP | | | | | + +--------+ +------+-------+ + | MEDICAID | MEDICA | [id number] | | | [address] | | | [place] | | | | [place] | | | [place] | | | | [address] | + +--------+ +------+-------+ + + +--------+ +--------+ + + | Guarantor Name | Accoun | Relation to | Date | Phone | Billing Address | | | t Type | Patient | of | | | | | | | | | | + +--------+ +--------+ + + | ISI PRADO | Person | Self [birth year] Home: | [address] | | | al/Fam | | 1940 | [phone] | [address] | | | dil[address] | | | [address] | [place] | | | | | | | [address] | + +--------+ +--------+ + +
--- OUTSIDE RECORDS SUMMARY | ~2018-02-05 | XMS | Encounter Summary ---
Demographics + + + | Address | [address] | | | [place] [address] | + + + | Home Phone | | + + + | Preferred Language | Unknown | + + + | Marital Status | Single | + + + | Faith Affiliation | 1041 | + + + | Race | Unknown | + + + | Ethnic Group | Unknown | + + + Author + + + | Author | [employer] | + + + | Organization | [facility] [employer] [employer] [facility] | + + + | Address [...] Team Providers + +------+ + | Care Footwear Production Machine Operator Name | Role | Phone [...] | | 2018 | on Only | [address] | JAMIE Guzman | - 12/06/17 - | | | | [address] | | rita) | | | | [place] [address] | | | | | | [phone] | | | +--------+ + + + [...]
--- OUTSIDE RECORDS SUMMARY | ~2018-02-05 | XMS | Encounter Summary ---
Demographics + + + | Address | [address] | | | [place] [address] | + + + | Home Phone | | + + + | Preferred Language | Unknown | + + + | Marital Status | Single | + + + | Caodaism Affiliation | 1041 | + + + | Race | Unknown | + + + | Ethnic Group | Unknown | + + + Author + + + | Author | [employer] | + + + | Organization | [facility] [employer] [facility] | + + + | Address [...] Team Providers + +------+ + | Care Hop Sorter Name | Role | Phone | + [...] | | | | unspecified | [place] [address] | [place], [place] | | | | | | Phone: | [address] Phone: | | | | | [employer] | [phone] | [phone] | | | | | tic heart | Fax: | Fax: | | | | | disease of | [phone] | [phone] | | | | | siletz tribe | | | | | | | [...] + | 01/25/ | Initial | [facility] [place] | Noa [place], | Essential | | 2018 | consult | Cardiology [place] | [address] | hypertension | | | | [address] | [address], | (Primary Dx); CKD | | | | [address] | [place] [address] | (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 | | | | [place] [address] | [phone] | disease), stage III; | | | | [phone] | | LBBB (left bundle | | [...] may be different fro m the original. [facility]: Cardiology Initial Consult Note Name of General Cargo Clerk: Lawanda Lambert MD Reason for Consultation: Left [...] feeling better since. Used to live in [place] and moved to [facility] around 5 years ago. REVIEW OF [...] meals., Disp: , Rfl: Cholecalciferol (VITAMIN D3) 82356 UNITS capsule, Take 1,000 Units by mouth [...] 12/06/2017 GLUF 112 (A) 05/25/2017 EK10/19/2017 From [facility] showed normal sinus rhythm with left [...]
--- OUTSIDE RECORDS SUMMARY | ~2018-02-05 | XMS | Encounter Summary ---
Demographics + + + | Address | [address] | | | [place] [address] | + + + | Home Phone | | + + + | Preferred Language | Unknown | + + + | Marital Status | Single | + + + | Cheondoism Affiliation | 1041 | + + + | Race | Unknown | + + + | Ethnic Group | Unknown | + + + Author + + + | Author | [employer] | + + + | Organization | [facility] [employer] [facility] | + + + | Address [...] Team Providers + +------+ + | Care Red Leader Name | Role | Phone | + [...] | | 2018 | on Only | [address] | JAMIE Guzman | - 12/06/17 - | | | | [address] | | rita) | | | | [place] [address] | | | | | | [phone] | | | +--------+ + + + [...]
--- OUTSIDE RECORDS SUMMARY | ~2018-02-05 | XMS | Encounter Summary ---
Demographics + + + | Address | [address] | | | [place] [address] | + + + | Home Phone [...] Author + + + | Author | [employer] | + + + | Organization | [facility] [employer] | + + + | Address [...] Team Providers + +------+ + | Care Balloon Artist Name | Role | Phone | + [...] | | | | unspecified | [place] [address] | [place], [place] | | | | | | Phone: | [address] Phone: | | | | | [employer] | [phone] | [phone] | | | | | tic heart | Fax: | Fax: | | | | | disease of | [phone] | [phone] | | | | | [place] | | | | | | | [...] + | 01/25/ | Initial | [facility] | Noa Lawanda, | Essential | | 2018 | consult | Cardiology [place] | [address] | hypertension | | | | [address] | Dr Zambrano, | (Primary Dx); CKD | | | | [address] | [place] [address] | (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 | | | | [place] [address] | [phone] | disease), stage III; | | | | [phone] | | LBBB (left bundle | | [...] may be different fro m the original. [facility] Service: Cardiology Initial Consult Note Name of Cubing Machine Tender: Lawanda Lambert MD Reason for Consultation: Left [...] feeling better since. Used to live in [place] and moved to [facility] around 5 years ago. REVIEW OF [...] meals., Disp: , Rfl: Cholecalciferol (VITAMIN D3) 44354 UNITS capsule, Take 1,000 Units by mouth [...] 12/06/2017 GLUF 112 (A) 05/25/2017 EK10/19/2017 From [facility] showed normal sinus rhythm with left [...]
--- OUTSIDE RECORDS SUMMARY | ~2018-02-05 | XMS | Encounter Summary ---
Demographics + + + | Address | [address] | | | [place] [address] | + + + | Home Phone | | + + + | Preferred Language | Unknown | + + + | Marital Status | Single | + + + | Baptism Affiliation | 1041 | + + + | Race | Unknown | + + + | Ethnic Group | Unknown | + + + Author + + + | Author | [employer] | + + + | Organization | [facility] [employer] | + + + | Address [...] Team Providers + +------+ + | Care Back Tender Name | Role | Phone | [...] Dr Zambrano, | | | | | [facility] [place] | [place] [address] | | | | | [address] | [phone] | | | | | [phone] | | | +--------+ + + + [...]
--- OUTSIDE RECORDS SUMMARY | ~2018-02-05 | XMS | Clinical Summary ---
Demographics + + + | Address | [address] | | | [place] [address] | + + + | Home Phone | | + + + | Preferred Language | Unknown | + + + | Marital Status | Single | + + + | Hoahaoism Affiliation | 1041 | + + + | Race | Unknown | + + + | Ethnic Group | Unknown | + + + Author + + + | Author | [employer] | + + + | Organization | [facility] [employer] [facility] | + + + | Address [...] Team Providers + +------+ + | Care Strategic Partner Development Manager Name | Role | Phone | + +------+ + | Silvana Shoemaker PERSONAL COMPUTER NETWORK ENGINEER | PP | | + +------+ + [...] | | Activ | | (VITAMIN D3) [address] | mouth daily. | | | | [...] | | 2018 | Visit | | PLANT BIOLOGY PROFESSOR | disease), stage III | | [...] | | 2017 | | | Megan CREDIT CORRESPONDENCE CLERK | type; CKD (chronic | | | [...] + | Blood | [facility] [address] [facility] [address] [place], [place] | | | [address] | + + + Urinalysis (reflex to [...] | [place] | | | [address] | + + + + + | [...] | + + + | Urine | [facility] [address] [place] [address] [place] | | | [address] | + + + + + | [...] + | Blood | [facility] [address], [address] [place], [place] | | | [address] | + + + Uric acid (12/06/2017) + +---------+ + | Component | Value | Ref Range | + +---------+ + | URIC ACID | 7.5 (A) | 2.3 - 6.6 | + +---------+ + + + + | Specimen | Performing Laboratory | + + + | Blood | [facility] [address], [address] [place], [place] | | | [address] | + + + PTH intact no [...] + | Blood | [facility] [address], [facility] [address] [place] | | | [address] | + + + Magnesium (12/06/2017) + +-------+ + | Component | Value | Ref Range | + +-------+ + | MAGNESIUM | 2.0 | 1.7 - 2.5 mg/dL | + +-------+ + + + + | Specimen | Performing Laboratory | + + + | Blood | [facility] [address] [place] [address], [facility] [address] [place], [place] | | | [address] | + + + Renal function panel [...] + | Blood | [facility] [address] [facility] [address] [place], [place] | | | [address] | + + + from Last 3 [...] RE | | | | [place] [address] | | | IP-OP | | | | | + +--------+ +------+-------+ + | MEDICAID | MEDICA | xxxxxxxx | | | [address] | | | ID | | | | [place]UI[place] | | | [place] | | | | [address] | + +--------+ +------+-------+ + + +--------+ [...] | | | | | | | [address] | + +--------+ +--------+ + +
--- OUTSIDE RECORDS SUMMARY | ~2018-02-05 | XMS | Encounter Summary ---
Demographics + + + | Address | [address] | | | [place] [address] | + + + | Home Phone | | + + + | Preferred Language | Unknown | + + + | Marital Status | Single | + + + | Confucianism Affiliation | 1041 | + + + | Race | Unknown | + + + | Ethnic Group | Unknown | + + + Author + + + | Author | [employer] | + + + | Organization | [facility] [facility] | + + + | Address [...] Team Providers + +------+ + | Care Cook Ice Cream Name | Role | Phone | + [...] | | | | | | [place] | | | | | | [address] | | | | | | [phone] | | | +--------+ + + + [...]
--- OUTSIDE RECORDS SUMMARY | ~2018-02-05 | XMS | Encounter Summary ---
Demographics + + + | Address | [address] | | | [place] [address] | + + + | Home Phone | | + + + | Preferred Language | Unknown | + + + | Marital Status | Single | + + + | Adventist Affiliation | 1041 | + + + | Race | Unknown | + + + | Ethnic Group | Unknown | + + + Author + + + | Author | [employer] | + + + | Organization | [facility] [employer] [facility] | + + + | Address [...] Team Providers + +------+ + | Care Transcriptionist Name | Role | Phone | + [...] | | | | | | [place] | | | | | | [address] | | | | | | [phone] | | | +--------+ + + + [...]
--- OUTSIDE RECORDS SUMMARY | ~2018-02-05 | XMS | Encounter Summary ---
Demographics + + + | Address | [address] | | | [place] [address] | + + + | Home Phone | | + + + | Preferred Language | Unknown | + + + | Marital Status | Single | + + + | Yazidism Affiliation | 1041 | + + + | Race | Unknown | + + + | Ethnic Group | Unknown | + + + Author + + + | Author | [employer] | + + + | Organization | [facility] [employer] | + + + | Address [...] Team Providers + +------+ + | Care Court Assistant Name | Role | Phone | + +------+ + | Silvana Shoemaker NP | PCP | | + +------+ + Encounter Details +--------+---------+ + + + | Date | Type | Department | Care Team | Description | +--------+---------+ + + + | 12/09/ | Office | [facility] | Will Rowan, | CKD (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 | | 2018 | Visit | [facility] [address] | YANNA COHEN | disease), stage III | | | | [place] | [address] | (Primary Dx); | | | | [address] [place], [place] | [place] [address] | Essential | | | | [address] | [phone] | hypertension; | | | | | [...] such as Protonix (omeprazole), talk to your 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 Call our office or your PCP if [...] times daily with meals. Cholecalciferol (VITAMIN D3) 66129 UNITS capsule Take 1,000 Units by mouth [...] 05/31/2016 LABIRON 24.6 05/31/2016 LABPROT 125.0 12/07/2017 [id number] 05/31/2016 Assessment: Ms. Vo is a [...] questions or concerns. Truly yours, Will RAINES [facility]rology This note prepared with voice [...] | Blood | [facility] [address] [facility] [address] [place] | | | [address] | + + + in this encounter Visit Diagnoses + + | Diagnosis | + + | CKD (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 disease), stage III - Primary | + + | Essential hypertension | + + | Unspecified essential hypertension | + + | Proteinuria, unspecified type | + +
--- OUTSIDE RECORDS SUMMARY | ~2018-02-05 | XMS | Encounter Summary ---
Demographics + + + | Address | [address] | | | [place] [address] | + + + | Home Phone | | + + + | Preferred Language | Unknown | + + + | Marital Status | Single | + + + | Yazidism Affiliation | 1041 | + + + | Race | Unknown | + + + | Ethnic Group | Unknown | + + + Author + + + | Author | [facility] [employer] | + + + | Organization | [facility] [employer] [facility] | + + + | Address [...] Providers + +------+ + | Care Cloth Washer Name | Role | Phone | + [...] | | 12/14/2017) | | | | [place] [address] | | | | | | [phone] | | | +--------+ + + + [...]
[2018-02-05] MEDS ORDERED: ASPERCREME1 EACH TD (12:56)
== END 2018-02-05 13:15 | disposition home or self-care (01) ==
LOC: ED 10:55
DX: S22.089A Unspecified fracture of T11-T12 vertebra, initial encounter for closed fracture (principal); I11.0 Hypertensive heart disease with heart failure; I50.9 Heart failure, unspecified; E78.00 Pure hypercholesterolemia, unspecified; Z79.899 Other long term (current) drug therapy; Z79.82 Long term (current) use of aspirin; W19.XXXA Unspecified fall, initial encounter; W22.8XXA Striking against or struck by other objects, initial encounter
CPT/HCPCS: 70450; 72128; 99284

== ENCOUNTER 2018-07-12 11:12 | Observation (INO) | payer MEDICARE, OTHER ==
[~2018-07-12] VITALS: Ht 157.5 cm; Wt 48.1 kg
--- OUTSIDE RECORDS SUMMARY | ~2018-07-12 | XMS | Encounter Summary ---
Demographics + + + | Address | [address] | | | [place] [address] | + + + | Home Phone | | + + + | Preferred Language | Unknown | + + + | Marital Status | Single | + + + | Confucianism Affiliation | 1041 | + + + | Race | Unknown | + + + | Ethnic Group | Unknown | + + + Author + + + | Author | [employer] | + + + | Organization | [facility] [employer] [facility] | + + + | Address [...] Team Providers + +------+ + | Care Cnc Lathe Machine Operator Name | Role | Phone [...] | +--------+ + + + + | 08// | Telephone | [facility] | [place], [place] | Labs Only | | 2017 | | [address] | | | | | | [address] | | | | | | [place] [address] | | | | | | [phone] | | | +--------+ + + + [...] as of this encounter Plan of Treatment + +--------+ + + | Name | Priori | Associated Diagnoses | Order Schedule | | | ty | | | + +--------+ + + | Basic metabolic panel | Routin | CKD (chronic | Expected: | | | e | kidney disease), | 05/29/2018, Expires: | | | | stage III | 05/24/2019 | + +--------+ + + as of this encounter Results Protein / creatinine ratio, urine (05/31/2018) + + + + + | Component | Value | Ref Range | Performed At | + + + + + | UR | 162.2 (A) | 0 - 150 | [facility] | | PROTEIN/CREATININE | | | LABORATORY | + + + + + + + | Specimen | + + | Urine | + + + + + | Narrative | Performed At | + + + | PROTEIN, URINE - 12 - 0.0 - 50.0 CREATININE, URINE - 74 | [facility] | | | LABORATORY | + + + + + + + + | Performing | Address | City/State/Zipcode | Phone Number | | Organization | | | | + + + + + | [facility] | [address] | [place] [address] | | | LABORATORY | 13 | | | + + + + + Uric acid (05/31/2018) + +---------+ + + | Component | Value | Ref Range | Performed At | + +---------+ + + | URIC ACID | 7.8 (A) | 2.3 - 6.6 | [facility] | | | | | LABORATORY | + +---------+ + + + + | Specimen | + + | Blood | + + + + + + + | Performing | Address | City/State/Zipcode | Phone Number | | Organization | | | | + + + + + | [facility] | [address] | [place] [address] | | | LABORATORY | 13 | | | + + + + + PTH intact no calcium (05/31/2018) + + + + + | Component | Value | Ref Range | Performed At | + + + + + | PTH INTACT NO | 86.06 (A) | 15 - 65 pg/mL | [facility] | | CALCIUM | | | LABORATORY | + + + + + + + | Specimen | + + | Blood | + + + + + + + | Performing | Address | City/State/Zipcode | Phone Number | | Organization | | | | + + + + + | [facility] | [address] | [place] [address] | | | LABORATORY | 13 | | | + + + + + CBC w/manual diff (05/31/2018) + + + + + | Component | Value | Ref Range | Performed At | + + + + + | WBC | 7.3 | 4.5 - 11.0 10^3/mL | [facility] | | | | | LABORATORY | + + + + + | RBC | 3.77 (A) | 3.8 - 5.1 10^6/ L | [facility] | | | | | LABORATORY | + + + + + | HGB | 12.1 | 12.0 - 16.0 g/dL | [facility] | | | | | LABORATORY | + + + + + | HCT | 35.8 | 35 - 45 % | [facility] | | | | | LABORATORY | + + + + + | MCV | 94.8 | 81 - 99 fL | [facility] | | | | | LABORATORY | + + + + + | MCH | 32 | 27 - 33 pg | [facility] | | | | | LABORATORY | + + + + + | MCHC | 34 | 30 - 36 g/dL | [facility] | | | | | LABORATORY | + + + + + | RDW SD | 13.5 | 10.5 - 15.0 % | [facility] | | | | | LABORATORY | + + + + + | PLT | Comment: UNABLE TO | 140 - 440 K/ L | [facility] | | | PERFORM ACCURATE | | LABORATORY | | | PLATELET COUNT DUE TO | | | | | CLUMPING, HOWEVER, THE | | | | | PLATELETS APPEAR | | | | | ADEQUATED ON THE SMEAR | | | + + + + + | MPV | | fL | [facility] | | | | | LABORATORY | + + + + + | NEUTROPHILS | 74 | 39 - 80 % | [facility] | | | | | LABORATORY | + + + + + | LYMPHOCYTES | 13 (A) | 24 - 44 % | [facility] | | | | | LABORATORY | + + + + + | MONOCYTES | 7 | 0 - 12 % | [facility] | | | | | LABORATORY | + + + + + | EOSINOPHILS | 6 | 0 - 6 % | [facility] | | | | | LABORATORY | + + + + + | BASOPHILS | 0 | 0 - 2 % | [facility] | | | | | LABORATORY | + + + + + | Neutrophils Absolute | | / L | [facility] | | | | | LABORATORY | + + + + + | Lymphocytes Absolute | | / L | [facility] | | | | | LABORATORY | + + + + + | Monocytes Absolute | | / L | [facility] | | | | | LABORATORY | + + + + + | Eosinophils Absolute | | / L | [facility] | | | | | LABORATORY | + + + + + | Basophils Absolute | | / L | [facility] | | | | | LABORATORY | + + + + + + + | Specimen | + + | Blood | + + + + + + + | Performing | Address | City/State/Zipcode | Phone Number | | Organization | | | | + + + + + | [facility] | [address] | [place] [address] | | | LABORATORY | 13 | | | + + + + + Magnesium (05/31/2018) + +-------+ + + | Component | Value | Ref Range | Performed At | + +-------+ + + | MAGNESIUM | 1.8 | 1.7 - 2.5 mg/dL | [facility] | | | | | LABORATORY | + +-------+ + + + + | Specimen | + + | Blood | + + + + + + + | Performing | Address | City/State/Zipcode | Phone Number | | Organization | | | | + + + + + | [facility] | [address] | [place] [address] | | | LABORATORY | 13 | | | + + + + + Renal function panel (05/31/2018) + + + + + | Component | Value | Ref Range | Performed At | + + + + + | GLUCOSE | 124 (A) | 70 - 100 mg/dL | [facility] | | | | | LABORATORY | + + + + + | BUN | 26 (A) | 6 - 23 mg/dL | [facility] | | | | | LABORATORY | + + + + + | CREATININE | 1.42 (A) | 0.70 - 1.11 mg/dL | [facility] | | | | | LABORATORY | + + + + + | PHOSPHORUS | | mg/dL | [facility] | | | | | LABORATORY | + + + + + | Albumin | 3.8 | 3.5 - 5.0 | [facility] | | | | | LABORATORY | + + + + + | SODIUM | 140 | 132 - 143 mmol/L | [facility] | | | | | LABORATORY | + + + + + | POTASSIUM | 4.6 | 3.6 - 5.1 mmol/L | [facility] | | | | | LABORATORY | + + + + + | CHLORIDE | 104 | 95 - 112 mmol/L | [facility] | | | | | LABORATORY | + + + + + | CO2 | 24 | 19 - 31 mmol/L | [facility] | | | | | LABORATORY | + + + + + | ANION GAP AGAP | 16.6 | 7 - 21 mmol/L | [facility] | | | | | LABORATORY | + + + + + | GFR MDRD Non Af Amer | | | [facility] | | | | | LABORATORY | + + + + + | Phosphorus,Inorganic | 4.3 | 2.5 - 5.0 | [facility] | | | | | LABORATORY | + + + + + | BUN/CREAT | 18.3 | 6.0 - 28.6 | [facility] | | | | | LABORATORY | + + + + + | CALCIUM | 9.1 | 8.5 - 10.3 mg/dL | [facility] | | | | | LABORATORY | + + + + + | EGFR | 36 | mg/dL | [facility] | | | | | LABORATORY | + + + + + + + | Specimen | + + | Blood | + + + + + + + | Performing | Address | City/State/Zipcode | Phone Number | | Organization | | | | + + + + + | [facility] | [address] | [place] [address] | | | LABORATORY | 13 | | | + + + + + in this encounter Visit Diagnoses + + | Diagnosis | + + | CKD (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 disease), stage III - Primary | + +"
--- OUTSIDE RECORDS SUMMARY | ~2018-07-12 | XMS | Encounter Summary ---
Demographics + + + | Address | [address] | | | [place] [address] | + + + | Home Phone | | + + + | Preferred Language | Unknown | + + + | Marital Status | Single | + + + | Muslim Affiliation | 1041 | + + + | Race | Unknown | + + + | Ethnic Group | Unknown | + + + Author + + + | Author | [employer] | + + + | Organization | [facility] [employer] [facility] | + + + | Address [...] Team Providers + +------+ + | Care Archeology Faculty Member Name | Role | Phone | + +------+ + | Silvana Shoemaker NP | PCP | | + +------+ + Encounter Details +--------+ + + + + | Date | Type | Department | Care Team | Description | +--------+ + + + + | 06/05/ | Telephone | [facility] | Will Rowan, | | | 2017 | | [address] | [address] | | | | | [address] | [address] [place] [address] | | | | | [address] [place] | [place] [address] | | | | | [address] | [phone] | | | | | | | | +--------+ + + + [...]
--- OUTSIDE RECORDS SUMMARY | ~2018-07-12 | XMS | Encounter Summary ---
Demographics + + + | Address | [address] | | | [place] [address] | + + + | Home Phone | | + + + | Preferred Language | Unknown | + + + | Marital Status | Single | + + + | Hinduism Affiliation | 1041 | + + + | Race | Unknown | + + + | Ethnic Group | Unknown | + + + Author + + + | Author | [employer] | + + + | Organization | [facility] [employer] [facility] | + + + | Address [...] Team Providers + +------+ + | Care Pulp Mill Operator Name | Role | Phone | + +------+ + | Silvana Shoemaker NP | PCP | | + +------+ + Reason for Visit + + + | Reason | Comments | + + + | Teo Natarajan | Germania - 05/31/18 - rita | + + + Encounter Details +--------+ + + + + | Date | Type | Department | Care Team | Description | +--------+ + + + + | 06/02/ | Documentati | [facility] | Brian, | Labs Only ([facility] | | 2018 | on Only | [place] [address] | [address] | - 05/31/18 - | | | | [address] | | rita) | | | | [place] [address] | | | | | | [phone] | | | +--------+ + + + [...]
--- OUTSIDE RECORDS SUMMARY | ~2018-07-12 | XMS | Encounter Summary ---
Demographics + + + | Address | [address] | | | [place] [address] | + + + | Home Phone | | + + + | Preferred Language | Unknown | + + + | Marital Status | Single | + + + | Gnosticist Affiliation | 1041 | + + + | Race | Unknown | + + + | Ethnic Group | Unknown | + + + Author + + + | Author | [employer] | + + + | Organization | [facility] | + + + | Address [...] Team Providers + +------+ + | Care Supervisor Inspection Department Name | Role | Phone | + [...] | | | [address] [place] | [place] [address] | | | | | [address] | [phone] | | | | | | | [...]
--- OUTSIDE RECORDS SUMMARY | ~2018-07-12 | XMS | Encounter Summary ---
Demographics + + + | Address | [address] | | | [place] [address] | + + + | Home Phone | | + + + | Preferred Language | Unknown | + + + | Marital Status | Single | + + + | Methodist Affiliation | 1041 | + + + | Race | Unknown | + + + | Ethnic Group | Unknown | + + + Author + + + | Author | [employer] | + + + | Organization | [facility] [employer] [employer] [facility] | + + + | [...] Team Providers + +------+ + | Care Branch Sales Manager Name | Role | Phone | + +------+ + | Laila Knight MD | PCP | | + +------+ + Encounter Details +--------+ + + + + | Date | Type | Department | Care Team | Description | +--------+ + + + + | 06/02/ | Orders Only | [facility] | Brian, | CKD (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 | | 2018 | | [address] | JAMIE Guzman | disease), stage III | | | | [address] | | | | | | [place] [address] | | | | | | [phone] | | | +--------+ + + + [...] Treatment Not on fileas of this encounter Procedures + +--------+ + + + | Procedure Name | Priori | Date/Time | Associated Diagnosis | Comments | | | ty | | | | + +--------+ + + + | PROTEIN / CREATININE | Routin | 05/31/2018 | CKD (chronic | Results for this | | RATIO, URINE | e | 12:00 AM | kidney disease), | procedure are in the | | | | PDT | stage III | results section. | + +--------+ + + + | CBC W/MANUAL DIFF | Routin | 05/31/2018 | CKD (chronic | Results for this | | | e | 12:00 AM | kidney disease), | procedure are in the | | | | PDT | stage III | results section. | + +--------+ + + + | URIC ACID | Routin | 05/31/2018 | CKD (chronic | Results for this | | | e | 12:00 AM | kidney disease), | procedure are in the | | | | PDT | stage III | results section. | + +--------+ + + + | PTH INTACT NO | Routin | 05/31/2018 | CKD (chronic | Results for this | | CALCIUM | e | 12:00 AM | kidney disease), | procedure are in the | | | | PDT | stage III | results section. | + +--------+ + + + | MAGNESIUM | Routin | 05/31/2018 | CKD (chronic | Results for this | | | e | 12:00 AM | kidney disease), | procedure are in the | | | | PDT | stage III | results section. | + +--------+ + + + | RENAL FUNCTION PANEL | Routin | 05/31/2018 | CKD (chronic | Results for this | | | e | 12:00 AM | kidney disease), | procedure are in the | | | | PDT | stage III | results section. | + +--------+ + + + in this encounter Results Protein / creatinine ratio, [...] + + + | [facility] | [address] | [place] [address] | | | LABORATORY | 13 | [...] | [address] | [place] [address] | | | LABORATORY | 13 | [...] | [address] | [place] [address] | | | LABORATORY | 13 | [...] | [address] | [place] [address] | | | LABORATORY | 13 | [...] | [address] | [place] [address] | | | LABORATORY | 13 | [...] | [address] | [place] [address] | | | LABORATORY | 13 | | | + + + + + in this encounter Visit Diagnoses + + | Diagnosis | + + | CKD (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 disease), stage III | + +"
--- OUTSIDE RECORDS SUMMARY | ~2018-07-12 | XMS | Encounter Summary ---
Demographics + + + | Address | [address] | | | [place] [address] | + + + | Home Phone | | + + + | Preferred Language | Unknown | + + + | Marital Status | Single | + + + | Confucianism Affiliation | 1041 | + + + | Race | Unknown | + + + | Ethnic Group | Unknown | + + + Author + + + | Author | [employer] | + + + | Organization | [facility] [email or web address] [facility] | + + + | Address [...] Team Providers + +------+ + | Care Cotton Ginner Helper Name | Role | Phone | + +------+ + | Silvana Shoemakre NP | PCP | | + +------+ [...] | | | [address] [place] | [place] [address] | | | | | [address] | [phone] | | | | | | | [...]
--- OUTSIDE RECORDS SUMMARY | ~2018-07-12 | XMS | Encounter Summary ---
Demographics + + + | Address | [address] | | | [place] [address] | + + + | Home Phone | | + + + | Preferred Language | Unknown | + + + | Marital Status | Single | + + + | Scientology Affiliation | 1041 | + + + | Race | Unknown | + + + | Ethnic Group | Unknown | + + + Author + + + | Author | [employer] | + + + | Organization | [facility] [employer] [facility] | + + + | Address [...] Team Providers + +------+ + | Care Activity Director Name | Role | Phone | + +------+ + | Laila Knight MD | PCP | | + +------+ + Encounter Details +--------+---------+ + + + | Date | Type | Department | Care Team | Description | +--------+---------+ + + + | 06/07/ | Office | [facility] | Will Rowan, | CKD (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 | | 2018 | Visit | [address] | YANNA COHEN | disease), stage III | | | | [address] | [address] | (Primary Dx); | | | | [address], [place] | [place] [address] | Essential | | | | [address] | [phone] | hypertension | | | | | | | +--------+---------+ + + + Social History [...] + + + | Blood Pressure | 104/48 | 06/07/2018 11:35 AM PDT | + + + + | Pulse | 62 | 06/07/2018 11:35 AM PDT | + + + + | Temperature | 36.2 C (97.1 F) | 06/07/2018 11:35 AM PDT | + + + + | Respiratory Rate | - | - | + + + + | Oxygen Saturation | 98% | 06/07/2018 11:35 AM PDT | + + + + | Inhaled Oxygen | - | - | | Concentration | | | + + + + | Weight | 49.3 kg (108 lb 11.2 | 06/07/2018 11:35 AM PDT | | | oz) | | + + + + | Height | 157.5 cm (5' 2") | 06/07/2018 11:35 AM PDT | + + + + | Body Mass Index | 19.88 | 06/07/2018 11:35 AM PDT | + + + + in this encounter Instructions Patient Instructions - Will Rowan ARNP - 06/07/2018 11:20 AM PDT Medication Changes made at today's visit: None Next LAB WORK should be done in about: 6 Months You do NOT need to [...] such as Protonix (omeprazole), talk to your 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 Call our office or your PCP if you have blood pressure over 150/90 on more than one occa molly, or low blood pressure that is concerning. If you experience diarrhea and /or vomiting for more than 24 hours with no relief please seek medical help immediately. The treatments that are recommended to slow the progression of Chronic Kidney Disease in clude blood sugar control, blood pressure control, healthy body weight (BMI >= 30 kg/m2), av oid sedentary lifestyle, avoid smoking/ tobacco, avoid NSAIDs, early intervention of worseni ng nausea, vomiting, no or low appetite and/or frequent diarrhea and avoid IV contrast. I urge that you measure your BP at least daily, twice daily, record it and bring record to every appointment with every healthcare provider you see. Do not drink alcohol. Avoid caffeinated beverages such as soda pop, coffee, espresso drinks, energy drinks. Please bring all of your medications in the pharmacy bottles to every visit so a medicat ion review can be done. Make all healthcare providers aware of the presence of kidney disease and request to adj ust all medications according to level of kidney function and to avoid nephrotoxic medicatio ns if possible, including but not limited to antibiotics. Call us with any questions about m eds. DO NOT TAKE any anti-inflammatory drugs such [...] necessary or for a life saving procedure. If you smoke, you must quit. Smoking worsens kidney disease. in this encounter Progress Notes Will Rowan ARNP - 06/07/2018 11:20 AM PDTFormatting of this note may be different f rom the original. Patient Active Problem List Diagnosis HTN (hypertension) Anemia CKD (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 disease), stage III Proteinuria Stroke COPD (chronic obstructive pulmonary disease) Osteoarthritis Vitamin D deficiency Right renal mass Closed nondisplaced lateral mass fracture of first cervical vertebra (HCC) LBBB (left bundle branch block) Dear Dr. Knight: I saw your patient Ms. Vo in the office today with her daughter and great grand kids. she is here to F/U on her CKD & its complications. The patient has history of hypertension since the 1989'. her BP control has been reportedl y [...] says that she feels 'good ' today, she has chronic PATTERSON. She has a chronic cough from co pd. she denies any blurred vision tinnitus, headache, fever, chills, or cough. No nausea, vom iting, abdominal pain, diarrhea, melena, or hematochezia. No palpitation, dizziness, loss o f consciousness, orthopnea, paroxysmal nocturnal dyspnea, or leg edema. Her medications where recently changed due to hypotension by her primary team, spironolacto ne and amlodipine were stopped, she was started on lisinopril 10mg daily. She reports she ki palomino made these changes today. The following portions of the patient's [...] lie down for the next 30 min. arformoterol (BROVANA) 15 MCG/2ML NEBU Take 15 [...] times daily with meals. Cholecalciferol (VITAMIN D3) 41128 UNITS capsule Take 1,000 Units by mouth daily. fluticasone-salmeterol (ADVAIR) 500-50 MCG/DOSE diskus inhaler Inhale 1 puff into the l ungs 2 (two) times daily. HYDROcodone-acetaminophen (NORCO) 5-325 MG per tablet Take 1 tablet by mouth every 6 (s ix) hours as needed for Pain. isosorbide mononitrate (IMDUR) 30 MG 24 hr tablet Take 30 mg by mouth daily. Lactobacillus (ACIDOPHILUS PO) Take by mouth. lisinopril (ZESTRIL) 10 MG tablet Take 10 mg by mouth daily. 0 loratadine (CLARITIN) 10 MG tablet Take 10 mg by mouth daily. oxymetazoline (AFRIN) 0.05 % nasal 1 spray by Each Nare route 2 (two) times daily. PARoxetine (PAXIL) 40 MG tablet Take 40 mg by mouth every morning. quetiapine (SEROQUEL) 50 MG tablet Take 50 mg by mouth nightly. amLODIPine (NORVASC) 5 MG tablet Take 5 mg by mouth daily. spironolactone (ALDACTONE) 25 MG tablet Take 25 mg by mouth daily. No current facility-administered medications for this visit. Physical Exam: BP 104/48 (BP Location: Left upper arm, Patient Position: Sitting) | Pulse 62 | Temp 97.1 F (36.2 C) (Temporal) | Ht 1.575 m (5' 2") | Wt 49.3 kg (108 lb 11.2 oz) | SpO2 98% | BMI 19.88 kg/m General appearance: Pleasant, not in acute [...] normal. Lab Results Component Value Date BUN 26 (A) 05/31/2018 CREATININE 1.42 (A) 05/31/2018 EGFR 36 05/31/2018 NA 140 05/31/2018 K 4.6 05/31/2018 CL 104 05/31/2018 CO2 24 05/31/2018 CA 9.1 05/31/2018 MG 1.8 05/31/2018 ALB 3.8 05/31/2018 HGB 12.1 05/31/2018 URICACID 7.8 (A) 05/31/2018 WBC 7.3 05/31/2018 HCT 35.8 05/31/2018 FERRITIN 142.0 05/31/2016 LABIRON 24.6 05/31/2016 LABPROT 162.2 (A) 05/31/2018 [id number] 05/31/2016 Assessment: Ms. Vo is a 78 y.o. female patient with stage IIIA CKD [...] for her BLOOD PRESSURE: Unknown control at home, low in the office BLOOD SUGAR: Reports it normal ELECTROLYTES: Ok, mild hyperK in the past ANEMIA: Mild VITAMIN D: Deficiency is being treated PARATHYROID HORMONE: Mildly up URIC ACID: Mild PROTEINURIA: Mild URINALYSIS: No UTI or hematuria [...] all kinds of NSAIDs for analgesia. PLAN: No medication changes today, recent changes to her BP meds by primary team. BP Charting: she will bring me back her home BP charts in 2 weeks. At that time, I will decide whether any changes to her vasoactive regimen are warranted. Follow up labs include: RFP, Magnesium, CBC, uric acid, UPCR. Discussed to avoid alcohol and caffeine. She will continue to F/U with your office regularly. She will have labs done before she comes back in [address] Knight for the opportunity to follow up with this patient and be part of the c are team. Please do not hesitate to call me at any time with questions or concerns. Truly yours, Will RAINES [facility] Nephrology This note prepared with voice recognition [...]
--- OUTSIDE RECORDS SUMMARY | ~2018-07-12 | XMS | Clinical Summary ---
Demographics + + + | Address | [address] | | | [place] [address] | + + + | Home Phone | | + + + | Preferred Language | Unknown | + + + | Marital Status | Single | + + + | Church Affiliation | 1041 | + + + | Race | Unknown | + + + | Ethnic Group | Unknown | + + + Author + + + | Author | [email or web address] | + + + | Organization | [facility] [employer] [facility] | + + + | Address [...] Team Providers + +------+ + | Care Environmental Maintenance Worker Name | Role | Phone | + +------+ + | Laila Knight MD | PP | | + +------+ + [...] | | Activ | | (VITAMIN D3) 44614 | mouth daily. | | | | [...] | | | + + +-------+---------+------+------+-------+ | lisinopril | Take 10 mg by mouth | | 0 | 08/2 | | Activ | | (ZESTRIL) 10 MG | daily. 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 | | | | | | (Primary Dx); | | | | | | Essential | | | | | | hypertension | +--------+ + + + + | 06/05/ | Telephone | | Will Rowan, | | | 2017 | | | GRATED CHEESE MAKER | | +--------+ + + + + | 06/02/ | Documentati | | Brian | Teo Only ([facility] | | 2017 | on Only | | JAMIE Guzman | - 05/31/18 - | | | | | | rita) | +--------+ + + + + | 06/02/ | Orders Only | | Brian, | CKD (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 | | 2017 | | | JAMIE Guzman | disease), stage III | +--------+ + + + + | 05/23/ | Telephone | | Elicia Redding MA | Labs Only | | 2017 | | | | | +--------+ + [...] AM PDT | + + + + Plan of Treatment + + + + + | Health Maintenance | Due Date | Last Done | Comments | + + + + + | Vaccine: | | | | | Dtap/Tdap/Td (1 - | 7 | | | | Tdap) | | | | + + + + + | Vaccine: Zoster (1 | | | | | of 2) | 8 | | | + + [...] Vaccine: Influenza | | | | | (#1) | 8 | | | + + + + + Procedures + +--------+ + + + | [...] section. | + +--------+ + + + from Last 3 Months Results Protein / creatinine ratio, urine (05/31/2018) [...] | [address] | [place] [address] | | | LABORATORY | 13 | [...] | [facility] | [address] | [place] [address] | | | LABORATORY | 13 | [...] | [address] | [place] [address] | | | LABORATORY | 13 | [...] | [address] | [place] [address] | | | LABORATORY | 13 | [...] | [address] | [place] [address] | | | LABORATORY | 13 | [...] | [address] | [place] [address] | | | LABORATORY | 13 | | | + + + + + from Last 3 Months Insurance + +--------+ +------+-------+ + | Payer | Benefi | Subscriber | Type | Phone | Address | | | t Plan | ID | | | | | | / | | | | | | | Group | | | | | + +--------+ +------+-------+ + | MEDICARE | MEDICA | [id number] | | | [address] | | | RE | | | | [place] [address] | | | IP-OP | | | | | + +--------+ +------+-------+ + | MEDICAID | MEDICA | [id number] | | | [address] | | | ID | | | | [place] | | | [place] | | | | [address] | + +--------+ +------+-------+ + + +--------+ +--------+ + + | Guarantor Name | Accoun | Relation to | Date | Phone | Billing Address | | | t Type | Patient | of | | | | | | | | | | + +--------+ +--------+ + + | ISI PRADO | Person | Self [birth year] Home: | [address] | | | al/Fam | | 1940 | [phone] | | | [place] | | | [address] | [place] | | | | | | | [address] | + +--------+ +--------+ + +
--- OUTSIDE RECORDS SUMMARY | ~2018-07-12 | XMS | Encounter Summary ---
Demographics + + + | Address | [address] | | | [place] [address] | + + + | Home Phone | | + + + | Preferred Language | Unknown | + + + | Marital Status | Single | + + + | Uatsdin Affiliation | 1041 | + + + | Race | Unknown | + + + | Ethnic Group | Unknown | + + + Author + + + | Author | [employer] | + + + | Organization | [facility] [employer] [facility] | + + + | Address [...] Team Providers + +------+ + | Care Deli/Bakery Associate Name | Role | Phone | [...] [address] | | | | | | [place] [address] | | | | | | [phone] | | | +--------+ + + + [...] | [address] | [place] [address] | | | LABORATORY | 13 | [...] | [address] | [place] [address] | | | LABORATORY | 13 | [...] | [address] | [place] [address] | | | LABORATORY | 13 | [...] | [facility] | [address] | [place] [address] | | | LABORATORY | 13 | [...] | [address] | [place] [address] | | | LABORATORY | 13 | [...] | [address] | [place] [address] | | | LABORATORY | 13 | | | + + + + + in this encounter Visit Diagnoses + + | Diagnosis | + + | CKD (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 disease), stage III - Primary | + +"
--- OUTSIDE RECORDS SUMMARY | ~2018-07-12 | XMS | Encounter Summary ---
Demographics + + + | Address | [address] | | | [place] [address] | + + + | Home Phone | | + + + | Preferred Language | Unknown | + + + | Marital Status | Single | + + + | Islam Affiliation | 1041 | + + + | Race | Unknown | + + + | Ethnic Group | Unknown | + + + Author + + + | Author | [employer] | + + + | Organization | [facility] | + + + | Address [...] Team Providers + +------+ + | Care Electric Golf Cart Repairers Name | Role | Phone | + [...] | | | | | [place] [address] | | | | | | [phone] | | | +--------+ + + + [...] | [facility] | [address] | [place] [address] | | | LABORATORY | 13 | [...] | [address] | [place] [address] | | | LABORATORY | 13 | [...] | [address] | [place] [address] | | | LABORATORY | 13 | [...] | [address] | [place] [address] | | | LABORATORY | 13 | [...] | [address] | [place] [address] | | | LABORATORY | 13 | [...] | [address] | [place] [address] | | | LABORATORY | 13 | | | + + + + + in this encounter Visit Diagnoses + + | Diagnosis | + + | CKD (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 disease), stage III | + +"
--- OUTSIDE RECORDS SUMMARY | ~2018-07-12 | XMS | Encounter Summary ---
Demographics + + + | Address | [address] | | | [place] [address] | + + + | Home Phone | | + + + | Preferred Language | Unknown | + + + | Marital Status | Single | + + + | Orthodoxy Affiliation | 1041 | + + + | Race | Unknown | + + + | Ethnic Group | Unknown | + + + Author + + + | Author | [employer] | + + + | Organization | [facility] [facility] | + + + | Address [...] Team Providers + +------+ + | Care Optics Test Technician Name | Role | Phone | [...] | | 2018 | on Only | [address] [address] | JAMIE Guzman | - 05/31/18 - | | | | [address] | | rita) | | | | [place] [address] | | | | | | [phone] | | | +--------+ + + + [...]
--- OUTSIDE RECORDS SUMMARY | ~2018-07-12 | XMS | Encounter Summary ---
Demographics + + + | Address | [address] | | | [place] [address] | + + + | Home Phone | | + + + | Preferred Language | Unknown | + + + | Marital Status | Single | + + + | Sabianism Affiliation | 1041 | + + + | Race | Unknown | + + + | Ethnic Group | Unknown | + + + Author + + + | Author | [email or web address] | + + + | Organization | [facility] | + + + | Address [...] Providers + +------+ + | Care Manager Embalmer Funeral Director Name | Role | Phone | [...] | | | | | [place] [address] | | | | | | [phone] | | | +--------+ + + + [...] | [facility] | [address] | [place] [address] | | | LABORATORY | 13 | [...] | [address] | [place] [address] | | | LABORATORY | 13 | [...] | [address] | [place] [address] | | | LABORATORY | 13 | [...] | [address] | [place] [address] | | | LABORATORY | 13 | [...] | [address] | [place] [address] | | | LABORATORY | 13 | [...] | [address] | [place] [address] | | | LABORATORY | 13 | | | + + + + + in this encounter Visit Diagnoses + + | Diagnosis | + + | CKD (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 disease), stage III | + +"
--- OUTSIDE RECORDS SUMMARY | ~2018-07-12 | XMS | Clinical Summary ---
Demographics + + + | Address | [address] | | | [place] [address] | + + + | Home Phone | | + + + | Preferred Language | Unknown | + + + | Marital Status | Single | + + + | Lutheran Affiliation | 1041 | + + + | Race | Unknown | + + + | Ethnic Group | Unknown | + + + Author + + + | Author | [employer] | + + + | Organization | [facility] | + + + | Address [...] Team Providers + +------+ + | Care Review Rn Name | Role | Phone | + [...] | | Activ | | (VITAMIN D3) 98096 | mouth daily. | | | | [...] | | 2018 | Visit | | PHOTOENGRAVING SUPERVISOR | disease), stage III | | | | | | (Primary Dx); | | | | | | Essential | | | | | | hypertension | +--------+ + + + + | 06/05/ | Telephone | | Will Rowan, | | | 2017 | | | PHOTOENGRAVING SUPERVISOR | | +--------+ + + + + [...] | [address] | [place] [address] | | | LABORATORY | 13 | [...] | [facility] | [address] | [place] [address] | | | LABORATORY | 13 | [...] | [address] | [place] [address] | | | LABORATORY | 13 | [...] | [address] | [place] [address] | | | LABORATORY | 13 | [...] | [address] | [place] [address] | | | LABORATORY | 13 | [...] | [address] | [place] [address] | | | LABORATORY | 13 | [...] +------+-------+ + | MEDICARE | MEDICA | [id number] | | | [address] | | | RE | | | | [place] [address] | | | IP-OP | | | | | + +--------+ +------+-------+ + | MEDICAID | MEDICA | [id number] | | | [address] | | | ID | | | | [place] | | | [place] | | | | [address] | + +--------+ +------+-------+ + + +--------+ [...] | | | [address] | | [address] | [place] | | | | | | | [address] | + +--------+ +--------+ + +
--- OUTSIDE RECORDS SUMMARY | ~2018-07-12 | XMS | Encounter Summary ---
Demographics + + + | Address | [address] | | | [place] [address] | + + + | Home Phone | | + + + | Preferred Language | Unknown | + + + | Marital Status | Single | + + + | Mormonism Affiliation | 1041 | + + + | Race | Unknown | + + + | Ethnic Group | Unknown | + + + Author + + + | Author | [employer] | + + + | Organization | [facility] [facility] | + + + | Address [...] Team Providers + +------+ + | Care Medical Esthetician Name | Role | Phone | + [...] | | 2018 | on Only | [place] [address] | JAMIE Guzman | - 05/31/18 - | | | | [address] | | rita) | | | | [place] [address] | | | | | | [phone] | | | +--------+ + + + [...]
--- OUTSIDE RECORDS SUMMARY | ~2018-07-12 | XMS | Encounter Summary ---
Demographics + + + | Address | [address] | | | [place] [address] | + + + | Home Phone | | + + + | Preferred Language | Unknown | + + + | Marital Status | Single | + + + | Congregational Affiliation | 1041 | + + + | Race | Unknown | + + + | Ethnic Group | Unknown | + + + Author + + + | Author | [employer] | + + + | Organization | [email or web address] [employer] [facility] | + + + | Address [...] Team Providers + +------+ + | Care Citrus Fruit Packer Name | Role | Phone | + [...] | | | [address], [place] | [place] [address] | Essential | | | | [address] | [phone] | hypertension | | | | | [...] such as Protonix (omeprazole), talk to your [facility] care provider about if you need this medication long winder tender. Call our office or your PCP if [...] times daily with meals. Cholecalciferol (VITAMIN D3) 26511 UNITS capsule Take 1,000 Units by mouth [...] LABIRON 24.6 05/31/2016 LABPROT 162.2 (A) 05/31/2018 [id number] 05/31/2016 Assessment: Ms. Vo is a [...] questions or concerns. Truly yours, Will RAINES [facility] Nephrology This note prepared with voice recognition [...]
--- OUTSIDE RECORDS SUMMARY | ~2018-07-12 | XMS | Encounter Summary ---
Demographics + + + | Address | [address] | | | [place] [address] | + + + | Home Phone | | + + + | Preferred Language | Unknown | + + + | Marital Status | Single | + + + | Rastafarian Affiliation | 1041 | + + + | Race | Unknown | + + + | Ethnic Group | Unknown | + + + Author + + + | Author | [employer] | + + + | Organization | [facility] [facility] | + + + | Address [...] Team Providers + +------+ + | Care Tile Ditcher Name | Role | Phone | + [...] | | | [address] [place] | [place] [address] | Essential | | | | [address] | [phone] | hypertension | | | | | [...] such as Protonix (omeprazole), talk to your [facility] care provider about if you need this medication technician terminal and repeater. Call our office or your PCP if [...] times daily with meals. Cholecalciferol (VITAMIN D3) 64989 UNITS capsule Take 1,000 Units by mouth [...] LABIRON 24.6 05/31/2016 LABPROT 162.2 (A) 05/31/2018 [id number] 05/31/2016 Assessment: Ms. Vo is a [...] questions or concerns. Truly yours, Will RAINES [facility] This note prepared with voice recognition [...]
--- OUTSIDE RECORDS SUMMARY | ~2018-07-12 | XMS | Encounter Summary ---
Demographics + + + | Address | [address] | | | [place] [address] | + + + | Home Phone | | + + + | Preferred Language | Unknown | + + + | Marital Status | Single | + + + | Evangelical Affiliation | 1041 | + + + | Race | Unknown | + + + | Ethnic Group | Unknown | + + + Author + + + | Author | [employer] | + + + | Organization | [facility] | + + + | Address [...] Team Providers + +------+ + | Care Assistant Administrator Name | Role | Phone | + [...] [address] | | | | | | [place] [address] | | | | | | [phone] | | | +--------+ + + + [...] | [address] | [place] [address] | | | LABORATORY | 13 | [...] | [address] | [place] [address] | | | LABORATORY | 13 | [...] | [address] | [place] [address] | | | LABORATORY | 13 | [...] | [facility] | [address] | [place] [address] | | | LABORATORY | 13 | [...] | [address] | [place] [address] | | | LABORATORY | 13 | [...] | [address] | [place] [address] | | | LABORATORY | 13 | | | + + + + + in this encounter Visit Diagnoses + + | Diagnosis | + + | CKD (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 disease), stage III - Primary | + +"
--- OUTSIDE RECORDS SUMMARY | ~2018-07-12 | XMS | Clinical Summary ---
Demographics + + + | Address | [address] | | | [place] [address] | + + + | Home Phone | | + + + | Preferred Language | Unknown | + + + | Marital Status | Single | + + + | Yarsanism Affiliation | 1041 | + + + | Race | Unknown | + + + | Ethnic Group | Unknown | + + + Author + + + | Author | [employer] | + + + | Organization | [facility] | + + + | Address [...] Team Providers + +------+ + | Care Isolation Washer Name | Role | Phone | [...] | | Activ | | (VITAMIN D3) 6[address]13 | mouth daily. | | | | [...] | | 2018 | Visit | | NIGHT TIME BABYSITTER | disease), stage III | | | | | | (Primary Dx); | | | | | | Essential | | | | | | hypertension | +--------+ + + + + | 06/05/ | Telephone | | Will Rowan, | | | 2017 | | | NIGHT TIME BABYSITTER | | +--------+ + + + + [...] | [address] | [place] [address] | | | LABORATORY | 13 | [...] | [facility] | [address] | [place] [address] | | | LABORATORY | 13 | [...] | [address] | [place] [address] | | | LABORATORY | 13 | [...] | [address] | [place] [address] | | | LABORATORY | 13 | [...] | [address] | [place] [address] | | | LABORATORY | 13 | [...] | [address] | [place] [address] | | | LABORATORY | 13 | [...] +------+-------+ + | MEDICARE | MEDICA | [id number] | | | [address] | | | RE | | | | [place] [id number] | | | IP-OP | | | | | + +--------+ +------+-------+ + | MEDICAID | MEDICA | [id number] | | | [address] | | | ID | | | | [place] | | | [place] | | | | [id number] | + +--------+ +------+-------+ + + +--------+ [...] | | | dilan | | | [address] | [place] | | | | | | | [address] | + +--------+ +--------+ + +
[~2018-07-12 11:12] MED LIST changes: +ASPERCREME1 EACH TD
--- OUTSIDE RECORDS SUMMARY | 2018-07-12 11:18 | XMS ---
PreManage Notification: ISI PRADO Security Communication Specialist Events No recent Security Events currently on file CRITERIA MET - Group Notification - POL CARE PROVIDERS WENDY CLARK Primary Care Current PHONE: [phone] Yomaira has no Care Guidelines for this patient. Care History Medical/Surgical 02/06/2018 [facility] - Patient is being seen by [facility]. Please notify [facility]Ws at [facility] if patient is seen in the ED. EXT [phone]. Care Recommendation: This patient has had 5 or more Emergency Department visits in the last 12 months. Patient requires education on the scope and purpose of the ED as an acute care provider not a Primary Care Provider and should not be utilized for chronic conditions. If patient returns to ED please contact Community Health WorkerJennifer at [phone]. These are guidelines and the provider should exercise clinical judgment when providing care. E.D. VISIT COUNT ([address] [facility] TOTAL 5 NOTE: Visits indicate total known visits. ED/UCC VISIT TRACKING (12 MO.) 07/12/2018 11:12 [facility] [place] TYPE: Emergency COMPLAINT: - SOB 02/05/2018 10:56 [facility] [place] TYPE: Emergency COMPLAINT: - BACK PAIN/INJURY DIAGNOSES: - Pure hypercholesterolemia, unspecified - Striking against or struck by other objects, initial encounter - Other contract processor (current) drug therapy - Unspecified fracture of T11-T12 vertebra, initial encounter for closed fracture - PURE HYPERCHOLESTEROLEMIA, UNSPECIFIED - Pain in thoracic spine - Heart failure, unspecified - Unspecified fall, initial encounter - [facility]FP (current) use of aspirin - Hypertensive heart disease with heart failure 01/31/2018 16:01 [facility] [place] TYPE: Emergency COMPLAINT: - GLF DIAGNOSES: - Pure hypercholesterolemia, unspecified - Chronic obstructive pulmonary disease, unspecified - Unspecified injury of head, initial encounter - PURE HYPERCHOLESTEROLEMIA, UNSPECIFIED - Unspecified fall, initial encounter - [facility]FP (current) use of aspirin - Major depressive disorder, single episode, unspecified - Other residential (current) drug therapy - Striking against or struck by other objects, initial encounter - Contusion of scalp, initial encounter 10/18/2017 10:24 [facility] [place] TYPE: Emergency COMPLAINT: - TROUBLE BREATHING 09/23/2017 12:50 [facility] [place] TYPE: Emergency COMPLAINT: - FEELING FAINT DIAGNOSES: - pediatric radiologist (current) use of aspirin - Chronic obstructive pulmonary disease, unspecified - PURE HYPERCHOLESTEROLEMIA, UNSPECIFIED - Other psychoactive substance use, unspecified with withdrawal, unspecified - Pure hypercholesterolemia, unspecified - Other residential (current) drug therapy - Personal history of transient ischemic attack (TIA), and cerebral infarction without residual deficits - Acquired absence of both cervix and uterus - Dizziness and giddiness - Anxiety disorder, unspecified - Atherosclerotic heart disease of [place] coronary artery without angina pectoris INPATIENT VISIT TRACKING (12 MO.) No inpatient visits to display in this time frame [email or web address]
[2018-07-12] MEDS ORDERED: BENZTROPINE ME0.5 MG PO (11:44)
--- NOTE | 2018-07-12 12:17 | EKG ---
[facility] [address] [place] [address] Signed Normal sinus rhythm Left bundle branch block Abnormal ECG When compared with ECG of 18-OCT-2017 10:37, Left bundle branch block is now present Confirmed by PREETI SPENCER MD ([id number]) on 07/12/2018 12:17:30 PM Electronically Signed By: PREETI SPENCER MD 07/12/18 1217 PATIENT NAME: XAVIALVINISI Electrocardiogram DATE OF : 36 PHYSICIAN: PREETI SPENCER MD REPORT #: [id number] REPORT IS CONFIDENTIAL AND NOT TO BE RELEASED WITHOUT AUTHORIZATION
--- NOTE | 2018-07-12 17:42 | NUR ---
PATIENT ADMITTED TO ROOM 109 FROM THE ER, SHE IS ON RA WITH SOME WHEEZING BUT NO C/O SOB AT THIS TIME. SHE IS UNSTEADY ON HER FEET AND NEEDED ASSIST WITH ONE HAND WHILE AMBULATING UP TO THE BATHROOM. ONLY ABOUT 50MLS OF HER LIGHT YELLOW CLEAR URINE HIT THE HAT THE REST MISSED. SHE HAS NO C/O PAIN AT THIS TIME. PATIENT ORDERED DINNER AND WAS ORIENTED TO THE ROOM. SHE IS ALERT AND ORIENTED UPON ARIVAL TO THE ROOM.
--- NOTE | 2018-07-12 19:41 | NUR ---
HELPED PT TO THE BATHROOM AND BACK TO BED. SCD'S PLUGGED BACK IN. BEDSIDE TABLE AND CALL LIGHT WITHIN REACH. PT NEEDS NOTHING AT THIS TIME.
--- NOTE | 2018-07-12 20:02 | NUR ---
RECEIVED REPORT FROM DAY SHIFT RN. PATIENT IS RESTING IN BED WATCHING TV. PATIENT DENIES ANY NEEDS. CALL LIGHT IN REACH.
--- NOTE | 2018-07-12 21:20 | NUR ---
PATIENT ASSESMENT COMPLETED. PATIENTS VITALS TAKEN AND RECORDED. PATIENT REPOSITIONED IN BED. PATIENTS ICE WATER REFILLED AND JELLO PROVIDED PER REQUEST. PATIENTS EVENING MEDICATIONS GIVEN PER ORDER. PATIENT DENIES ANY PAIN OR SOB. PATIENT IS ON RA. SCDS IN PLACE. PATIENT DENIES FURTHER NEEDS. PATIENT IS RESTING IN BED WATCHING TV. CALL LIGHT IN REACH AND BED ALARM ON FOR SAFETY.
--- NOTE | 2018-07-13 00:06 | NUR ---
PLACED CALL TO DR SPENCER WITH CONCERND OF PATIENTS COUGH. NEW VERBAL ORDERS RECEIVED. VERIFIED ORDERS USING THE HELEN METHOD.
--- NOTE | 2018-07-13 00:35 | NUR ---
PATIENT GIVEN PRN COUGH MEDICATION PER ORDER. PATIENT IS RESTING IN BED. PATIENT REMAINS ON TELE #9, HR 80. PATIENT DENIES ANY FURTHER NEEDS. CALL LIGHT IN REACH. ON RA
--- NOTE | 2018-07-13 01:20 | NUR ---
VITALS AND I&OS DONE AND CHARTED. HELPED PT TO THE BATHROOM AND BACK TO BED. PT ASKED ABOUT SLEEPING PILLS, I INFORMED HER RN LENCHO. BEDSIDE TABLE AND CALL LIGHT IN REACH. FRESH WATER GIVEN.
--- NOTE | 2018-07-13 01:28 | NUR ---
PATIENT INFORMED SHE DID NOT HAVE ANY SLEEPING PILLS AVAILABLE AT THIS TIME. PATIENT VERBALIZED UNDERSTANDING. PATIENT REPOSITIONED. PATIENT OFFERED A WARM BLANKET AND TEA. PATIENT REFUSED. NO FURTHER NEEDS NOTED. CALL LIGHT IN REACH.
--- NOTE | 2018-07-13 03:48 | NUR ---
PATIENT IS RESTING IN BED WITH EYES CLOSED, RR 16. TELE #9, HR 65. CALL LIGHT IN REACH.
--- NOTE | 2018-07-13 04:48 | NUR ---
PATIENT FAILED TO REST THROUGHOUT THE SHIFT. PATIENT HAS A COUGH THAT AWAKENS HER. PATIENT GIVEN PRN COUGH MEDICATION X1. PAITENTS COUGH IS UNPRODUCTIVE. PATIENTIS ON A CARDIAC DIET AND TOLERATING IT WELL. PATIENT HAS HAD MULTIPLE SNACKS WITH NO COMPLAINTS OF NAUSEA. PATIENT HAS SCDS IN PLACE. PATIENT IS ON TELE #9, HR IN THE 70'S. PATIENT IS A SBA AND IS UNSTEADY ON HER FEET. PATIENT IS SL AND IV FLUSHES WELL. PATIENT HAS SCHEDULED NEBS. PATIENTS OUPUT IS QS. PATIENT IS ON RA. PATIENT IS AAOX3 AND USES HER CALL LIGHT APPROPRIATELY.
--- NOTE | 2018-07-13 05:29 | NUR ---
PATIENTS VITALS TAKEN AND RECORDED. PATIENT ASSISTED TO THE RESTROOM A SBA. PATIENT WAS ABLE TO VOID. PATIENT GIVEN SCHEDULED MEDICATIONS PER ORDER. PATIENT ALSO GIVEN PRN COUGH MEDICATION PER ORDER. PATIENT ASSESMENT COMPLETED. PATIENT DENIES ANY PAIN. SOB NOTED. PATIENT STATED "I FEEL SOB WHEN I COUGH". NO FURTHER NEEDS NOTED. SCDS IN PLACE. CALL LIGHT IN REACH. PATIENT RESTING IN BED.
--- NOTE | 2018-07-13 07:36 | NUR ---
PATIENT SITING UP IN CHAIR. PATIENT BACK TO BED 2 PERSON ASSISTED. CALL LIGHT WITHIN REACH. WARM BLANKET PROVIDED. BED ALARM ON. ICE WATER GIVEN. NO OTHER NEEDS AT THIS TIME.
--- NOTE | 2018-07-13 08:48 | NUR ---
patient sitting up in bed. pateint looks pale and tired. patient stating that she did not get a lot of sleep last night due to cough. patient vitals taken. patient reports that she is hot. changed linens. patient tolerating one piece of roll for breakfast. patient rr increased to 26-28. sating well. lungs coarse. patient reports that she just had breathing treatment. patient unclear if they helped. cough medication given. patient continues to have barky cough. patient requesting to sleep. room darkened and asked staff to compine cares.
--- NOTE | 2018-07-13 09:26 | NUR ---
PATIENT RESTING IN BED. TREASURER NOTICED THAT PATIENT SHORT OF BREATH AND COUGH. RN NOTIFIED. RN CAME IN ROOM. THERAPIST RESPIRATORY CAME IN ROOM. ICE WATER GIVEN. CALL LIGHT WITHIN REACH. NO OTHER NEEDS AT THIS TIME.
--- NOTE | 2018-07-13 10:33 | NUR ---
PATIENT SLEEPING AT THIS TIME. RR EVEN AND UNLABORED. EYES ARE CLOSED.
--- NOTE | 2018-07-13 12:22 | NUR ---
PATIENT RESTING IN BED. PATIENT WALK TO CHAIR. BEDBATH DONE. ICE WATER GIVEN. LINENS CHANGED. CLEAN GOWN PROVIDED.
--- NOTE | 2018-07-13 12:25 | NUR ---
PATIENT MOVED TO CHAIR. PATIENT TOLERATED WELL. VERY WEAK WITH TRANSFER, BUT MINIMAL ASSIST WITH TRANSFER. SITTING IN CHAIR. VITALS DONE. COUGH MEDICATION GIVEN PER PATIENTS REQUEST.
[2018-07-13] MEDS ORDERED: AMITRIPTYLINE H25 MG PO (12:32)
[2018-07-13] MEDS ORDERED: OMEPRAZOLE20 MG PO (12:33)
[2018-07-13] MEDS ORDERED: TRAZODONE HCL50 MG PO (12:33)
[2018-07-13] MEDS ORDERED: LISINOPRIL10 MG PO (12:34)
--- NOTE | 2018-07-13 13:30 | NUR ---
ROUNDED WITH DR. SPENCER IN ROOM. ELECTROPLATING SALES REPRESENTATIVE IN ROOM TO DO TEST.
--- NOTE | 2018-07-13 14:05 | NUR ---
PATIENT RESTING IN BED. VITALS AND I&O DONE. PATIENT ASKED TO EAT A JELLO. JELLO AND ICE WATER GIVEN. CALL LIGHT WITHIN REACH. NO OTHER NEEDS AT THIS TIME.
--- NOTE | 2018-07-13 14:31 | NUR ---
PATIENT GIVEN DONNA PEARLS. PATIENT RESTING IN BED. CALL LIGHT WITHIN REACH. NO OTHER COMPLAINT AT THIS TIME.
--- NOTE | 2018-07-13 15:26 | NUR ---
PATIENTS DAUGHTER IN ROOM. UPDATE GIVEN TO DAUGHTER.
[2018-07-13] MEDS ORDERED: BROVANA15 MCG/2 M INH (15:43)
[2018-07-13] MEDS ORDERED: ROPINIROLE HC0.25 MG PO (15:45)
--- NOTE | 2018-07-13 16:17 | NUR ---
PATIENT REQUESTING COUGH MEDICATIONS. NEB GIVEN
--- NOTE | 2018-07-13 17:18 | NUR ---
PATIENT RESTING IN BED. VITALS DONE. ICE WATER GIVEN. CALL LIGHT WITHIN REACH. NO OTHER NEEDS AT THIS TIME.
--- NOTE | 2018-07-13 17:22 | NUR ---
PATIENT SET UP FOR DINNER. EVENING MEDICATION GIVEN.
--- NOTE | 2018-07-13 18:05 | NUR ---
PATIENT NOT HAVING A GOOD DAY TODAY. CONTINUE TO HAVE INCREASE WORK OF BREATHING AND COUGH. COUGH IMPROVED WITH COUGH MEDICATION. RESTING IN BED AND IN CHAIR TODAY. ECHO DONE. VOIDING WELL. STBY ASSIST TO BR. VITALS WNL. SATING WELL. PATIENT ONLY ABLE TO REST A COUPLE TIMES DURING THE DAY.
--- NOTE | 2018-07-13 18:38 | NUR ---
PATIENT HAS ANVOIDED FOR 4 HOURS. RN NOTIFIED.
--- NOTE | 2018-07-13 19:45 | NUR ---
Charge nurse rounding note: resting, scds in place, ra, no c/o pain, call light and fluids at bedside
--- NOTE | 2018-07-13 20:08 | NUR ---
VITALS AND I&OS DONE AND CHARTED. HELPED PT TO THE BATHROOM AND BACK TO BED. BEDSIDE TABLE AND CALL LIGHT IN REACH.
--- NOTE | 2018-07-13 22:00 | NUR ---
PAIENT RESTING QUIETLY IN BED. O2 SATS 90-92%. PATIENT RESTING QUIETLY. EYES CLOSED RESPIRATIONS REGULAR AND EVEN.
--- NOTE | 2018-07-14 00:13 | NUR ---
PATIENT RESTING QUIETLY IN BED, BUT AWAKE AND ALERT AND ORIENTED TO PERSON TIME AND PLACE. SATS HAVE DECREASED TO 86% HOPE 2L/NC WAS PLACED AND SATS NOW 92%.RT NOTIFIED.
--- NOTE | 2018-07-14 02:15 | NUR ---
PATIENT RESTING QUIETLY. HR=66 AND SATS 91%. EYES CLOSED AND RESPIRATIONS EVEN AND REGULAR.
--- NOTE | 2018-07-14 03:55 | NUR ---
PATIENT RESTING ON HER RIGHT SIDE. O2 SATS 92% WITH A HEART RATE OF 56. EYES CLOSED, RESPIRATIONS EVEN AND REGULAR.
--- NOTE | 2018-07-14 05:55 | NUR ---
VITALS AND I&OS DONE AND CHARTED. HELPED PT TO THE BATHROOM AND BACK TO BED. 2 WARM BLANKETS GIVEN. FRESH WATER GIVEN.
--- NOTE | 2018-07-14 08:00 | NUR ---
SBA INTO BATHROOM TO VOID, BALANCE IS A LITTLE BETTER TODAY, SOB WITH ANY EXHERTION. SAT UP IN RECLINER FOR BREAKFAST. WARM BLANKET, CALL LIGHT IN EASY REACH. PT DENIES ANY PAIN.
--- NOTE | 2018-07-14 09:52 | NUR ---
PATIENT RESTING IN BED. VITALS AND I&O DONE. PATIENT COMPLAINS ABOUT FEELS DIZZIE. BLOOD PRESURE AND OXIGEN LOW.RN NOTIFIED. CALL LIGHT WITHIN REACH. ICE WATER GIVEN. NO OTHER NEEDS AT THIS TIME.
--- NOTE | 2018-07-14 12:31 | NUR ---
PAPER WORK SENT TO [facility]. FAMILY WISHING TO HAVE ASSISTED LIVING FOR DISCHARGE PLAN. AWAITING TO HEAR BACK.
--- NOTE | 2018-07-14 13:01 | NUR ---
PATIENT RESTING IN BED. VITALS AND I&O DONE. ICE WATER GIVEN. CALL LIGHT WITHIN REACH. NO OTHER NEEDS AT THIS TIME.
--- NOTE | 2018-07-14 13:23 | NUR ---
TAKING FLUIDS WELL, NOT MUCH APPETITE THIS AFTERNOON, DAUGHTER HERE TO VISIT. PT IS RESTING BETTER TODAY BUT STATES SHE FEELS VERY TIRED. O2 TO KEEP SATS > 90%.
--- NOTE | 2018-07-14 15:20 | NUR ---
PATIENT CALLED TO USE THE BATROOM. PATIENT BACK TO BED. CALL LIGHT WITHIN REACH. BED ALARM ON. NO OTHER NEEDS AT THIS TIME
--- NOTE | 2018-07-14 18:54 | NUR ---
PT IS RESTING BETTER TODAY, SHAKING AND ANXIETY ARE BETTER TODAY. CONT. TO BE SOB AND WEAK WITH MUCH EXHERTION. O2 TO KEEP SATS >90% WHEN RESTING. USING CALL LIGHT APPROP.
--- NOTE | 2018-07-14 20:11 | NUR ---
VITALS AND I&OS DONE AND CHARTED. HELPED PT TO THE BATHROOM AND BACK TO BED WITH HER FWW. BEDSIDE TABLE AND CALL LIGHT IN REACH. FRESH ICE WATER AND CRACKERS GIVEN PER HER REQUEST. INFORMED RN ABOUT HIGH B\P
--- NOTE | 2018-07-14 21:30 | NUR ---
CHARGE NURSE ROUNDING NOTE: IN BED WATCHING TV, CALL LIHGT AND FLUIDS WITHIN HEANDS REACH, BED ALARM ON. NO REQUESTS, CONTINUES TO HAVE FINE HAND TREMORS
--- NOTE | 2018-07-14 22:00 | NUR ---
ALL PATIENT'S EVENING MEDS HAVE BEEN GIVEN. NO COMPLAINTS EXCEPT FOR HER COUGH. PATIENT ON 2L/NC FOR SLEEP. PATIENT CURRENTLY WATCHING TV.
--- NOTE | 2018-07-15 00:10 | NUR ---
PATIENT RESTING QUIETLY ON HER LEFT SIDE RESPIRATIONS EVEN AND REGULAR, EYES CLOSED, SATS 94% ON 2L/NC WITH A HR OF 56.
--- NOTE | 2018-07-15 01:59 | NUR ---
PATIENT CONTINUES TO REST QUIETLY WITH NO COUGH. SATS 95% ON 2L/NC AND HR OF 58. EYES CLOSED RESPIRATIONS REGULAR AND EVEN.
--- NOTE | 2018-07-15 02:18 | NUR ---
PATIENT UP TO THE BATHROOM WITH STANDBY ASSIST AND VOIDED 400MLS AND THEN BACK TO BED.
--- NOTE | 2018-07-15 03:57 | NUR ---
PATIENT CONTINUES TO REST QUIETLY ON HERLEFT SIDE AFTER REQUESTING MORE COUGH SYRUP. RESPIRATIONS EVEN AND REGULAR AND EYES CLOSED. SATS 95% ON 2L/NC AND HR 56.
--- NOTE | 2018-07-15 05:51 | NUR ---
PATIENT HAS SLEPT PRETTI WELL THIS SHIFT. SHE DID HAVE TO HAVE A SECOND DOSE OF COUGH SYRUP A SHORT TIME AGO WHEN HER COUGH STARTED UP. BUT SHE HAS SLEPT WELL ON HER 2L/NC AND HAS AMBULATED TO THE BATHROOM WITH ASSIST AND IS WHEREING HER SCD'S.
--- NOTE | 2018-07-15 06:11 | NUR ---
PATIENT JUST GOT UP AND VOIDED AGAIN WITH 1PA AND TOOK HER TESSLON PEARLS.
--- NOTE | 2018-07-15 07:00 | NUR ---
PATIENT REPORT RECEIVED FROM CHANDRAKANT YA AT THIS TIME. PATIENT IS RESTING WITH HOB ELEVATED AND OXYGEN ON PER NC AT 2L.
--- NOTE | 2018-07-15 08:11 | NUR ---
patient in bed, did not want to get in the chair she also didnt want her blinds or ;lights on, board updated and breakfast delivered
--- NOTE | 2018-07-15 08:30 | NUR ---
patient still has c/o cough, no shortness of breath, respiratory therapy was just in and patient receive a nebulizer treatment. patient given cough syrup after she requested it.
--- NOTE | 2018-07-15 08:30 | NUR ---
PATIENT GIVEN ROBUTUSSIN PO AT THIS TIME FOR C/O COUGHING. SHE REMAINS ON OXYGEN AT 2L PER NC SHE IS SLEEPY AND IS GOING TO TAKE A NAP. COREG PO HELD THIS AM DUE TO LOW PULSE RATE AT 46, DOCTOR AZIZA NOTIFIED. OXYGEN RATE ON THE 2L NC IS AT 95%.
--- NOTE | 2018-07-15 10:04 | NUR ---
PREIST FROM [facility] CALLED TO CHECK UP ON THE PATIENT PER FAMILY REQUEST, ONE WILL BE IN TOMMORROW TO COME AND PRAY FOR THE PATIENT.
--- NOTE | 2018-07-15 12:13 | NUR ---
PATIENT ATE 40% OR HER LUNCH ANDIS SITTING UP IN BED RESTING. PATIENT DENIES ANY PAIN OR SHORTNESS OF BREATH. SHE REMAINS ON OXYGEN AT 2L PER NC.
--- NOTE | 2018-07-15 15:00 | NUR ---
RT IN THE ROOM GIVING THE PATIENT A NEBULIZER TX, PATIENT REQUESTED COUGH SYRUP AT THIS TIME.
--- NOTE | 2018-07-15 15:11 | NUR ---
RT IN THE ROOM WORKING WITH THE PATIENT AT THIS TIME
--- NOTE | 2018-07-15 16:30 | NUR ---
PATIENT'S DINNER SET UP FOR HIM, PATIENT REMAINS ON OXYGEN AT 2L PER NC, SHE DENIES ANY SOB AT THIS TIME.
--- NOTE | 2018-07-15 18:25 | NUR ---
patient in bed, changed pj's and ready for sleep, she needed no other assistance at this time
--- NOTE | 2018-07-15 18:31 | NUR ---
PATIENT HAS NO NEEDS OR SOB AT THIS TIME, PATIENT ATE 100% OF HER DINNER. RESPIRATIONS ARE EVEN UNLABORED BUT SHE STILL HAS A NON PRODUCTIVE COUGH. OXYGEN SATURATION WHILE AWAKE ON 2L PER NC IS AT 97%. SHE IS ALERT AND ORIENTED.
--- NOTE | 2018-07-15 20:00 | NUR ---
PATIENT RESTING ON HER LEFT SIDE, 2L/NC ON, EYES CLOSED, RESPIRATIONS EVEN AND REGULAR. HR=66 ON PULSE OX WITH A SAT OF 94%.
--- NOTE | 2018-07-15 21:12 | NUR ---
pt resting in bed watching tv. call light within reach.
--- NOTE | 2018-07-15 22:15 | NUR ---
PATIENT'S COUGH HAS RETURNED. ALL EVENING MEDS GIVEN AND PM ASSESSMENT DONE. PATIENT READY TO GO TO SLEEP AND NOTHING ELSE NEEDED AT THIS TIME.
--- NOTE | 2018-07-15 22:37 | NUR ---
charge nurse rounding note: pt resting, eyes closed, no c/o pain, no requests, call light and fluids at bedside
--- NOTE | 2018-07-16 00:32 | NUR ---
PATIENT CONTINUES TO REST QUIETLY ON HER LEFT SIDE WITH 2L/NC ON. SATS 96% AND HR=64. EYES CLOSED AND RESPIRATIONS EVEN AND REGULAR.
--- NOTE | 2018-07-16 02:15 | NUR ---
PATIENT UP TO THE BATHROOM WITH 1PSBA. VOIDED 500ML. IV FLUSHED. PATIENT'S COUGH HAS RETURNED AND PATIENT RECEIVED MORE COUGH SYRUP AND IS GOING TO TRY AND GO BACK TO SLEEP.
--- NOTE | 2018-07-16 02:58 | NUR ---
PATIENT SLEEPING AGAIN ON HER LEFT SIDE. CALL LIGHT IN REACH. 2L/NC ON. PULSE OX SHOWS O2 SATS OF 98% AND A PULSE OF 64. EYES CLOSED RRESPIRATIONS EVEN AND REGULAR.
--- NOTE | 2018-07-16 06:11 | NUR ---
PATIENT SSLEPT PRETTY WELL THE FIRST HALF OF THE NIGHT AFTER HER COUGH SYRUP, TESSLON PERLS, AND SLEEPING PILL, BUT HAD TO HAVE A SECOND DOSE OF COUGH SYRUP DURING THE NIGHT AND JUST HAD HER AM TESSLON PERLS. OTHER THAN HAVING TO GET UP TO USE THE BATHROOM SHE HAS SLEPT FAIRLY WELL, AND HER IV FLUSHES GREAT. PATIENT REMAINS ON 2L/NC WHILE TRYING TO SLEEP. VS WERE STABLE AND PATIENT IS GOING TO TRY AND GET SOME MORE SLEEP.
--- NOTE | 2018-07-16 07:40 | NUR ---
patient asleep in bed, breakfast brought in, she didnt want to wake up right away. board updated
--- NOTE | 2018-07-16 08:32 | NUR ---
ASSUMED CARE, PT DENIES NEEDS - FRESH ICE WATER PROVIDED, SL L WRIST, AM MEDS TAKEN, PT WANTS ROOM DARK - SCDS ON, CALL LIGHT IN REACH - 02 2L NC 99 SATS HR 54.
--- NOTE | 2018-07-16 08:38 | NUR ---
pr requested cough syrup for non productive cough - meds given.
--- NOTE | 2018-07-16 14:10 | NUR ---
pt c/o coughing - medicated with tessalon perles. requested carrot cake for snack - rn called kitchen - no further needs.
--- NOTE | 2018-07-16 14:37 | NUR ---
pateint in bed, took vitals signs, she needed no other assistance at this time
--- NOTE | 2018-07-16 16:26 | NUR ---
continues to be short of breath with talking - resting in bed with no c/o.
--- NOTE | 2018-07-16 17:56 | NUR ---
PATIENT IS IN BED, DID VITAL SIGNS, SHE NEEDED NO OTHER ASSISTANCE AT THIS TIME
--- NOTE | 2018-07-16 18:17 | NUR ---
pt had un eventful day, cont. to need 02 2 lnc - most likely dc home with it. cough is occasional, denies pain.
--- NOTE | 2018-07-16 22:11 | NUR ---
WALKED PATIENT TO THE BATHROOM AND BACK TO BED. JUST 1PSBA. PATIENT DID WELL CALL LIGHT IN REACH.
--- NOTE | 2018-07-16 22:16 | NUR ---
Declined c/o pain, coop with assessment
--- NOTE | 2018-07-16 22:39 | NUR ---
MEDICATED WITH 10CC ROBUTOSSIN W CODEINE COUGH SYRUP P[ER C/O FREQUENT DRY, NON PRODUCTIVE COUGH
--- NOTE | 2018-07-16 23:52 | NUR ---
RESTING, EYES CLOSED, NO C/O PAIN OR RESP DISTRESS. O2 2LNC INPLACE, TURNS SELF IN BED, SCDS IN PLACE, FLUIDS AND CALL LIGHT WITHIN HANDS REACH
--- NOTE | 2018-07-17 01:08 | NUR ---
UP TO BRP, VOIDED CLEAR YELLOW URINE, O22L NC IN PLACE, MILD SOB WITH EXERTION NOTED, CONT PULSE OX INPLCE SATS 93% ON RETURN, PULSE 89 R20, LUNGS CLEAR BILAT, BACK TO BED, SL INTACT, SCDS IN PLACE. CONTINUES TO HAVE VERY FINE BARELY NOTICEABLE HANDS TREMORS. HAS SLEPTS, AWAKES EASILY, COOP WITH ASSESSMENT, NO C/O PAIN. TOLERATING FLUIDS WELL. CALL LIHGT AT BEDSIDE
--- NOTE | 2018-07-17 04:00 | NUR ---
PATIENT STARTED COUGHING AGAIN AND REQUESTED MORE COUGH SYRUP WHICH WAS GIVEN AND THE PATIENT IS GOING TO TRY AND GET SOME MORE SLEEP.
--- NOTE | 2018-07-17 06:56 | NUR ---
PATIENT SLEPT WELL, BUT DID NEED HER TESSLON PERLS AND CODIENE COUGH SYRUP X2 DURING THE NIGHT.
--- NOTE | 2018-07-17 07:30 | NUR ---
BEDSIDE REPORT RECEIVED FROM CHANDRAKANT. PATIENT RESTING WITH EYES CLOSED.
--- NOTE | 2018-07-17 08:07 | NUR ---
SHIFT REPORT RECEIVED FROM RADHA YA. PATIENT SLEEPING AT THIS TIME. ALLOWING SLEEP FOR PATIENT.
--- NOTE | 2018-07-17 08:41 | NUR ---
ASSESSMENT AND MEDICATIONS DUE. PATIENT IN CHAIR EATING BREAKFAST. PATIENT DENIES PAIN. PATIENT STATES THAT SHE IS ALWAYS SOB BUT NO WORSE THAN NORMAL. PATIENT HAS A NON-PRODUCTIVE COUGH. ASSESSMENT DONE. MEDICATIONS GIVEN. CALL LIGHT WITHIN REACH. NO FURTHER REQUESTS AT THIS TIME.
--- NOTE | 2018-07-17 09:49 | NUR ---
PATIENT IN BED. CALL LIGHT IN REACH. NO FURTHER NEEDS AT THIS TIME.
--- NOTE | 2018-07-17 12:47 | NUR ---
ROUNDED ON PATIENT. DENIES SOB AND PAIN. CALL LIGHT WITHIN REACH. NO FURTHER REQUESTS AT THIS TIME.
--- NOTE | 2018-07-17 13:24 | NUR ---
PATIENT UP TO BATHROOM FROM CHAIR AND BACK TO BED, SBA. PATIENT GIVEN A BED BATH. LINENS CHAGNED. PATIENT DID ORAL CARE INDEPENDENTLY. CALL LIGHT IN REACH. NO FURTHER NEEDS AT THIS TIME.
--- NOTE | 2018-07-17 13:41 | NUR ---
PATIENT IN BED RESTING. FRESHWTAER GIVEN. CALL LIGHT IN REACH. NO FURTHER NEEDS AT THIS TIME.
--- NOTE | 2018-07-17 14:20 | NUR ---
MEDICATION DUE. PATIENT TALKING WITH FRIEND. MEDICATIONS GIVEN. CALL LIGHT WITHIN REACH. NO FURTHER REQUESTS AT THIS TIME.
--- NOTE | 2018-07-17 14:38 | NUR ---
CALL LIGHT ON. PATIENT ASSISTED TO TOILET. SBA WITH FWW. CRACKLES IN LOWER BASES, PATIENT DEMONSTRATED CORRECT USAGE OF IS. PATIENT DENIES PAIN, STATES SOB IS NORMAL AND SHE IS DOING OKAY OFF THE NASAL CANNULA, O2 SAT 94%. CALL LIGHT WITHIN REACH. NO FURTHER REQUESTS AT THIS TIME.
--- NOTE | 2018-07-17 14:54 | NUR ---
Pt. does not have Medicaid housing only medication. Spoke with daughter, she will contact Medicaid office for evaluation for housing. Currently, pt. is safe to d/c to [email or web address]. Pharmacist notified [employer] to bubble pack Rx to help with pt. medication management. Pt. and daughter are acceptable of d/c to prior living ([facility]). Will make referral to [facility] for pt. medication review on 07/19/2018. Daughter will transport pt. to home at 1630 today.
--- NOTE | 2018-07-17 16:15 | NUR ---
07/17 1615 Spoke with Daughter at discharge; daughter spoke with Medicaid to attempt insurance coverage for living expenses, states will take 30-90 days; Informed no skilled qualified; pt. amb. to batheroom without assistance. Spoke lucie Rico for HH RN and [facility] for 1x/day visiting and medication review. Daughter agreeable with HH [facility] and/or [facility]. Pt. returning to [facility] apt.
--- NOTE | 2018-07-17 16:34 | NUR ---
PATIENT READY TO DISCHARGE. PIV DC'D. VSS. DISCHARGE EDUCTION GIVEN TO DAUGHTER AND PATIENT WHO VERBALIZE UNDERSTANDING OF INSTRUCTIONS AND STATE ALL THEIR QUESTIONS HAVE BEEN ANSWERED. REVA, PHARMACIST, EXPLAINED MEDICATIONS AND BUBBLE PACKS AT [facility]. PATIENT WHEELED FROM UNIT BY BHAKTI MURCIA.
== END 2018-07-17 16:30 | disposition home health service (06) ==
LOC: ED 11:12 → MS 11:13
PROVIDERS: ADMIT Internal Medicine
DX: G25.1 Drug-induced tremor (principal); T43.015A Adverse effect of tricyclic antidepressants, initial encounter; T44.3X5A Adverse effect of other parasympatholytics [anticholinergics and antimuscarinics] and spasmolytics, initial encounter; K11.7 Disturbances of salivary secretion; R45.1 Restlessness and agitation; R42 Dizziness and giddiness; R26.81 Unsteadiness on feet; F41.9 Anxiety disorder, unspecified; F51.04 Psychophysiologic insomnia; R54 Age-related physical debility; J44.9 Chronic obstructive pulmonary disease, unspecified; F32.9 Major depressive disorder, single episode, unspecified; J30.2 Other seasonal allergic rhinitis; E78.5 Hyperlipidemia, unspecified; I13.0 Hypertensive heart and 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 disease with heart failure and stage 1 through stage 4 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 disease, or unspecified 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 disease; I50.23 Acute on chronic systolic (congestive) heart failure; N18.3 Chronic kidney disease, stage 3 (moderate); M54.30 Sciatica, unspecified side; I25.10 Atherosclerotic heart disease of native coronary artery without angina pectoris; M81.0 Age-related osteoporosis without current pathological fracture; Z86.73 Personal history of transient ischemic attack (TIA), and cerebral infarction without residual deficits; Z66 Do not resuscitate; Z79.82 Long term (current) use of aspirin; Z79.83 Long term (current) use of bisphosphonates; Z79.51 Long term (current) use of inhaled steroids; Z79.899 Other long term (current) drug therapy
CPT/HCPCS: 36415; 71046; 80048; 80053; 83880; 84484; 85025; 93005; 93010; 93306; 94640; 94667; 94668; 94761; 94762; 96374; 96375; 99285; G0378; J2930